=== PATIENT | male | born 1960 | race African-American/Black ===

== ENCOUNTER 2016-07-24 16:36 | Inpatient (IN) | payer OTHER ==
[2016-07-24 16:48] VITALS: BMI 25.1
--- NOTE | 2016-07-24 16:59 | HP ---
CIWA Score - CIWA Score Nausea/Vomitin-No Nausea/No Vomiting Muscle Tremors: 4-Moderate,w/Arms Extend Anxiety: 4-Mod. Anxious/Guarded Agitation: 4-Moderately Restless Paroxysmal Sweats: 1-Minimal Palms Moist Orientation: 3-Disoriented Date>2 days Tacttile Disturbances: 0-None Auditory Disturbances: 0-None Visual Disturbances: 0-None Headache: 0-None Present CIWA-Ar Total Score: 16 Admission ROS S - HPI Chief Complaint: WITHDRAWAL SX Allergies/Adverse Reactions: Allergies Allergy/AdvReac Type Severity Reaction Status Date / Time No Known Allergies Allergy Verified 06/24/11 15:36 History of Present Illness: 55 YEARS OLD MALE WITH LONG HISTORY OF ALCOHOL COCAINE NICOTINE DEPENDENCE, POSITIVE PPD WAS TREATED, DEPRESSION, LONGEST SOBRIETY ONE YEAR, SUPPORTIVE SISTER IN [place], IS ADMITTED TO DETOX Exam Limitations: No Limitations - Ebola screening Have you traveled outside of the country in the last 21 days: No Have you had contact with anyone from an Ebola affected area: No Have you been sick,other than usual withdrawal symptoms: No Do you have a fever: No - Review of Systems Constitutional: Chills, Changes in sleep, Weight Stable EENT: reports: Other (EYE GLASSES) Respiratory: reports: No Symptoms reported Cardiac: reports: No Symptoms Reported GI: reports: Poor Appetite, Poor Fluid Intake, Abdominal cramping : reports: No Symptoms Reported Musculoskeletal: reports: No Symptoms Reported Integumentary: reports: No Symptoms Reported Neuro: reports: Tremors Endocrine: reports: No Symptoms Reported Hematology: reports: No Symptoms Reported Psychiatric: reports: Judgement Intact, Depressed Other Systems: Reviewed and Negative Patient History - Patient Medical History Hx Anemia: No Hx Asthma: No Hx Chronic Obstructive Pulmonary Disease (COPD): No Hx Cancer: No Hx Cardiac Disorders: No Hx Congestive Heart Failure: No Hx Hypertension: No Hx Hypercholesterolemia: No Hx Pacemaker: No HX Cerebrovascular Accident: No Hx Seizures: No Hx Dementia: No Hx Diabetes: No Hx Gastrointestinal Disorders: No Hx Liver Disease: No Hx Genitourinary Disorders: No Hx Sexually Transmitted Disorders: No Hx Renal Disease (ESRD): No Hx Thyroid Disease: No Hx Human Immunodeficiency Virus (HIV): No (04/24/11-hiv testing -negative) Hx Hepatitis C: Yes (SCHEDULED TO TREAT) Hx Depression: Yes Hx Suicide Attempt: No Hx Bipolar Disorder: No Hx Schizophrenia: No - Patient Surgical History Past Surgical History: No Hx Neurologic Surgery: No Hx Cataract Extraction: No Hx Cardiac Surgery: No Hx Lung Surgery: No Hx Breast Surgery: No Hx Breast Biopsy: No Hx Abdominal Surgery: No Hx Appendectomy: No Hx Cholecystectomy: No Hx Genitourinary Surgery: No Hx Orthopedic Surgery: No - PPD History Previous Implant?: Yes Documented Results: Positive w/o proof Implanted On Prior [facility] Admission?: No PPD to be Administered?: No - Smoking Cessation Smoking history: Current every day smoker Have you smoked in the past 12 months: Yes Aproximately how many cigarettes per day: 10 Cigars Per Day: 0 Hx Chewing Tobacco Use: No Initiated information on smoking cessation: Yes 'Breaking Loose' booklet given: 07/24/16 - Substance & Tx. History Hx Alcohol Use: Yes Hx Substance Use: Yes Substance Use Type: Alcohol, Cocaine Hx Substance Use Treatment: Yes - Substances Abused Alcohol Route: Oral Frequency: Daily Amount used: 16OZ X 6 PACK BEER Age of first use: 13 Date of Last Use: 07/24/16 Family Disease History - Family Disease History Family Disease History: Diabetes: Sister, Heart Disease: Mother (), Other: Father () Admission Physical Exam BHS - Vital Signs Vital Signs: Vital Signs - 24 hr 07/24/16 16:47 Temperature 97.0 F L Pulse Rate 87 Respiratory 20 Rate Blood Pressure 106/68 - Physical General Appearance: Yes: Appropriately Dressed, Alcohol on Breath, Thin, Tremorous, Irritable, Sweating, Anxious HEENTM: Yes: Hearing grossly Normal, Normal ENT Inspection, Normocephalic, Normal Voice Respiratory: Yes: Chest Non-Tender, Lungs Clear, Normal Breath Sounds, No Respiratory Distress, No Accessory Muscle Use Neck: Yes: Supple, Trachea in good position Breast: Yes: Breasts Symetrical Cardiology: Yes: Regular Rhythm, Regular Rate, S1, S2 Abdominal: Yes: Non Tender, Soft, Decreased BS Genitourinary: Yes: Within Normal Limits Back: Yes: Normal Inspection Musculoskeletal: Yes: Gait Steady Extremities: Yes: Normal Inspection, Normal Range of Motion, Non-Tender, Tremors Neurological: Yes: Alert, Motor Strength 5/5, Normal Response, Depressed Affect Integumentary: Yes: Warm, Moist Lymphatic: Yes: Within Normal Limits - Diagnostic (1) Alcohol dependence with uncomplicated withdrawal Current Visit: Yes Status: Acute (2) Cocaine dependence, uncomplicated Current Visit: Yes Status: Chronic (3) Nicotine dependence Current Visit: Yes Status: Acute Qualifiers: Nicotine product type: cigarettes Substance use status: in withdrawal Qualified Code(s): F17.213 - Nicotine dependence, cigarettes, with withdrawal (4) Hepatitis C antibody test positive Current Visit: Yes Status: Chronic Comment: SCHEDULED TO TREAT Cleared for Admission [facility] - Detox or Rehab [facility] Level of Care: Medically Managed Detox Regimen/Protocol: Librium S Breath Alcohol Content Breath Alcohol Content: 0.079 Vital Signs - Vital Signs Vital Signs Refused: No Temperature: 97 F Temperature Source: Oral Pulse Rate: 87 Respiratory Rate: 20 Blood Pressure: 106/68 BP Location: Left Arm Blood Pressure Position: Sitting - Height Height: 6 ft 2 in - Weight Weight: 196 lb Weight Measurement Method: Standing Scale Body Mass Index (BMI): 25.1 - Bowel Function Bowel Movement: Yes Urine Drug Screen - Control Is Test Valid: Yes - Results Drug Screen Negative: No Urine Drug Screen Results: GENE-Cocaine
[2016-07-24] MEDS ORDERED: MAGNESIUM CITRATE 300 ML BOTTLE PO PRN (17:11)
[2016-07-24] MEDS ORDERED: LOPERAMIDE HCL 2 MG CAPSULE PO PRN (17:11)
[2016-07-24] MEDS ORDERED: diphenhydrAMINE HCL 50 MG CAPSULE PO PRN (17:11)
[2016-07-24] MEDS ORDERED: NICOTINE POLACRILEX 2 MG GUM BC PRN (17:11)
[2016-07-24] MEDS ORDERED: hydrOXYzine PAMOATE 50 MG CAPSULE (FP) PO PRN (17:11)
[2016-07-24] MEDS ORDERED: ACETAMINOPHEN 325 MG TABLET (FP) PO PRN (17:11)
[2016-07-24] MEDS ORDERED: MAG HYDROX/AL HYDROX/SIMETH 30 ML UNIT-DOSE CUP PO PRN (17:11)
[2016-07-24] MEDS ORDERED: guaiFENesin/D-METHORPHAN HB 10 ML UNIT-DOSE CUPS PO PRN (17:11)
[2016-07-24] MEDS ORDERED: P-EPHED 60MG/TRIPROLIDI 2.5MG TABLET PO PRN (17:11)
[2016-07-24] MEDS ORDERED: chlordiazePOXIDE HCL 25 MG CAPSULE PO PRN (17:11)
[2016-07-24] MEDS ORDERED: MENTHOL/PHENOL 1 EACH UD MM PRN (17:11)
[2016-07-24] MEDS ORDERED: MAGNESIUM HYDROX 2400MG/30ML ORAL SUSPENSION 30 ML CUP PO PRN (17:11)
[2016-07-24] MEDS ORDERED: chlordiazePOXIDE HCL 25 MG CAPSULE PO ONE (18:15)
[2016-07-24] MEDS: chlordiazePOXIDE HCL 25 MG CAPSULE PO SCH (22:12)
[2016-07-24] MEDS: THIAMINE HCL 100 MG TABLET (FP) PO SCH (22:12)
[2016-07-24 23:29] LABS: URINE APPEARANCE CLEAR; URINE BILIRUBIN NEGATIVE (NEGATIVE); URINE BLOOD NEGATIVE (NEGATIVE); URINE COLOR LTYELLOW; URINE GLUCOSE (UA) NEGATIVE (NEGATIVE); URINE KETONE NEGATIVE (NEGATIVE); URINE LEUK ESTERASE NEGATIVE (NEGATIVE); URINE NITRITE NEGATIVE (NEGATIVE); URINE PROTEIN NEGATIVE (NEGATIVE); URINE UROBILINOGEN 2.0 E.U/dl E.U./dl (0.2-1.0)
[2016-07-25] MEDS: chlordiazePOXIDE HCL 25 MG CAPSULE PO SCH ×4 (06:13→22:29)
[2016-07-25] MEDS: IBUPROFEN 400 MG TABLET (FP) PO PRN ×2 (06:15→22:30)
[2016-07-25 10:06] LABS: MCH 31.2 pg (25.7-33.7); MCHC 33.9 g/dl (32.0-35.9); MEAN CELL VOLUME 92.2 fl (80-96); MEAN PLT VOLUME 8.3 fl (7.5-11.1); PLATELET COUNT 309 K/MM3 (134-434); RDW 14.7 % (11.9-15.9); WHITE BLOOD COUNT 5.7 K/mm3 (4.0-10.0)
[2016-07-25 10:32] LABS: ALK PHOS 84 U/L (45-117); ANION GAP 6 (8-16); BILIRUBIN,TOTAL 0.3 mg/dL (0.2-1.0); CALCIUM 8.4 mg/dL (8.5-10.1); CO2 28 mmol/L (21-32); GLUCOSE,RANDOM 105 mg/dL (74-106); SGOT/AST 22 U/L (15-37); SGPT/ALT 30 U/L (12-78); TOT PROT 6.3 g/dl (6.4-8.2)
--- NOTE | 2016-07-25 10:38 | PN ---
S CIWA - CIWA Score Nausea/Vomitin-No Nausea/No Vomiting Muscle Tremors: 4-Moderate,w/Arms Extend Anxiety: 3 Agitation: 4-Moderately Restless Paroxysmal Sweats: 3 Orientation: 0-Oriented Tacttile Disturbances: 0-None Auditory Disturbances: 0-None Visual Disturbances: 0-None Headache: 1-Very Mild CIWA-Ar Total Score: 15 BHS Progress Note (SOAP) Subjective: agitation sweats shakes interrupted sleep headache Objective: 07/25/16 10:36 Vital Signs Temperature 97.3 F L 07/25/16 10:12 Pulse Rate 86 07/25/16 10:12 Respiratory Rate 16 07/25/16 10:12 Blood Pressure 115/59 07/25/16 10:12 O2 Sat by Pulse Oximetry (%) Laboratory Tests 07/24/16 07/25/16 23:25 07:30 WBC 5.7 RBC 4.21 Hgb 13.1 Hct 38.8 MCV 92.2 MCHC 33.9 RDW 14.7 Plt Count 309 MPV 8.3 Urine Color Ltyellow Urine Appearance Clear Urine pH 7.0 Ur Specific [place] 1.005 Urine Protein Negative Urine Glucose (UA) Negative Urine Ketones Negative Urine Blood Negative Urine Nitrite Negative Urine Bilirubin Negative Urine Urobilinogen 2.0 e.u/dl Ur Leukocyte Esterase Negative labs pending awake/alert lying in bed no acute distress Assessment: 07/25/16 10:37 withdrawal sx Plan: continue detox increase fluids labs pending tylenol/motrin prn
[2016-07-25] MEDS: PRENATAL VITAMINS W/ FOLIC ACID TABLET (FP) PO SCH (10:49)
[2016-07-25] MEDS: NICOTINE 14 MG/24 HOURS TOPICAL PATCH TD SCH (10:50)
--- NOTE | 2016-07-25 11:43 | CONSULT ---
[facility] Psychiatric Consult - Data Date of interview: 07/25/16 Admission source: [facility] Identifying data: Readmission to [facility] for this 55 y/o AA male seeking detox treatment on for alcohol and cocaine dependence.Patient is single without children,homeless,unemplolyed and deprived of any means of income. Substance Abuse History: - Smoking Cessation. Smoking history: Current every day smoker. Have you smoked in the past 12 months: Yes. Aproximately how many cigarettes per day: 10. Cigars Per Day: 0. Hx Chewing Tobacco Use: No. Initiated information on smoking cessation: Yes. 'Breaking Loose' booklet given : 07/24/16. - Substance & Tx. History. Hx Alcohol Use: Yes. Hx Substance Use : Yes. Substance Use Type: Alcohol, Cocaine. Hx Substance Use Treatment: Yes. - Substances Abused. Alcohol. Route: Oral. Frequency: Daily. Amount used: 16OZ X 6 PACK BEER. Age of first use: 13. Date of Last Use: 07/24/16. Patient confirms this pattern of substance abuse. Medical History: Hepatitis C. Psychiatric History: Patient denies history of psychiatric treatment. Physical/Sexual Abuse/Trauma History: Patient denies history of sexual abuse.Heavy history of incarceration (sent to custodial at age 18 and released at 41).Currently on parole for life. Additional Comment: Urine Drug Screen Results: GENE-Cocaine.Noted. Mental Status Exam - Mental Status Exam Alert and Oriented to: Time, Place, Person Cognitive Function: Good Patient Appearance: Well Groomed Mood: Nervous, Anxious, Hopeful Affect: Mood Congruent Patient Behavior: Appropriate, Cooperative Speech Pattern: Clear Voice Loudness: Normal Thought Process: Intact, Goal Oriented Thought Disorder: Not Present Hallucinations: Denies Suicidal Ideation: Denies Homicidal Ideation: Denies Insight/Judgement: Fair Sleep: Well Appetite: Good Muscle strength/Tone: Normal Gait/Station: Normal Psychiatric Findings - Problem List ([place] 1, 2,3) (1) Alcohol dependence with uncomplicated withdrawal Current Visit: Yes Status: Acute (2) Nicotine dependence Current Visit: Yes Status: Acute Qualifiers: Nicotine product type: cigarettes Substance use status: in withdrawal Qualified Code(s): F17.213 - Nicotine dependence, cigarettes, with withdrawal (3) Cocaine dependence, uncomplicated Current Visit: Yes Status: Acute (4) Substance induced mood disorder Current Visit: Yes Status: Suspected (5) Hepatitis C antibody test positive Current Visit: Yes Status: Chronic Comment: SCHEDULED TO TREAT - Initial Treatment Plan Initial Treatment Plan: Psychoeducation.Detoxification in progress.Mr Elam indicates his disinterest for psychotropic medications.He prefers the option of " talk therapy." He appears to be receptive to teaching.Observation.
[2016-07-25 15:09] LABS: HIV 1 & 2 AB NEGATIVE; HIV 1 AGp24 NEGATIVE
--- NOTE | 2016-07-25 15:20 | EKG ---
Test Reason : Blood Pressure : / mmHG Vent. Rate : 089 BPM Atrial Rate : 089 BPM P-R Int : 130 ms QRS Dur : 084 ms QT Int : 370 ms P-R-T Axes : 047 -08 047 degrees QTc Int : 450 ms NORMAL SINUS RHYTHM VOLTAGE CRITERIA FOR LEFT VENTRICULAR HYPERTROPHY ABNORMAL ECG NO PREVIOUS ECGS AVAILABLE Confirmed by LEONA TERRY MD ([id number]) on 07/25/2016 3:20:20 PM Referred By: Confirmed By:LEONA TERRY MD
[2016-07-25] MEDS: THIAMINE HCL 100 MG TABLET (FP) PO SCH (22:28)
[2016-07-26] MEDS: chlordiazePOXIDE HCL 25 MG CAPSULE PO SCH ×3 (05:40→17:32)
[2016-07-26] MEDS: NICOTINE 14 MG/24 HOURS TOPICAL PATCH TD SCH (10:16)
[2016-07-26] MEDS: PRENATAL VITAMINS W/ FOLIC ACID TABLET (FP) PO SCH (10:16)
[2016-07-26] MEDS: IBUPROFEN 400 MG TABLET (FP) PO PRN (10:21)
--- NOTE | 2016-07-26 11:58 | PN ---
[facility] CIWA - CIWA Score Nausea/Vomitin Muscle Tremors: 3 Anxiety: 3 Agitation: 2 Paroxysmal Sweats: 1-Minimal Palms Moist Orientation: 0-Oriented Tacttile Disturbances: 1-Very Mild Itch/Numbness Auditory Disturbances: 1-Very Mild Visual Disturbances: 1-Very Mild Sensitivity Headache: 2-Mild CIWA-Ar Total Score: 17 BHS Progress Note (SOAP) Subjective: ALERT,IRRITABLE,ANXIOUS,INTERRUPTED SLEEP,TREMOR Objective: 07/26/16 11:56 Vital Signs Temperature 97.3 F L 07/26/16 10:24 Pulse Rate 84 07/26/16 10:24 Respiratory Rate 18 07/26/16 10:24 Blood Pressure 92/62 07/26/16 10:24 O2 Sat by Pulse Oximetry (%) Laboratory Last Values WBC 5.7 K/mm3 (4.0-10.0) 07/25/16 07:30 RBC 4.21 M/mm3 (4.00-5.60) 07/25/16 07:30 Hgb 13.1 GM/dL (11.7-16.9) 07/25/16 07:30 Hct 38.8 % (35.4-49) 07/25/16 07:30 MCV 92.2 fl (80-96) 07/25/16 07:30 MCHC 33.9 g/dl (32.0-35.9) 07/25/16 07:30 RDW 14.7 % (11.9-15.9) 07/25/16 07:30 Plt Count 309 K/MM3 (134-434) 07/25/16 07:30 MPV 8.3 fl (7.5-11.1) 07/25/16 07:30 Sodium 142 mmol/L (136-145) 07/25/16 07:30 Potassium 4.3 mmol/L (3.5-5.1) 07/25/16 07:30 Chloride 108 mmol/L (98-107) H 07/25/16 07:30 Carbon Dioxide 28 mmol/L (21-32) 07/25/16 07:30 Anion Gap 6 (8-16) L 07/25/16 07:30 BUN 13 mg/dL (7-18) 07/25/16 07:30 Creatinine 1.0 mg/dL (0.7-1.3) 07/25/16 07:30 Creat Clearance w eGFR > 60 (>60) 07/25/16 07:30 Random Glucose 105 mg/dL (74-106) 07/25/16 07:30 Calcium 8.4 mg/dL (8.5-10.1) L 07/25/16 07:30 Total Bilirubin 0.3 mg/dL (0.2-1.0) D 07/25/16 07:30 AST 22 U/L (15-37) D 07/25/16 07:30 ALT 30 U/L (12-78) D 07/25/16 07:30 Alkaline Phosphatase 84 U/L (45-117) D 07/25/16 07:30 Total Protein 6.3 g/dl (6.4-8.2) L 07/25/16 07:30 Albumin 3.0 g/dl (3.4-5.0) L 07/25/16 07:30 Urine Color Ltyellow 07/24/16 23:25 Urine Appearance Clear 07/24/16 23:25 Urine pH 7.0 (5.0-8.0) 07/24/16 23:25 Ur Specific [place] 1.005 (1.001-1.035) 07/24/16 23:25 Urine Protein Negative (NEGATIVE) 07/24/16 23:25 Urine Glucose (UA) Negative (NEGATIVE) 07/24/16 23:25 Urine Ketones Negative (NEGATIVE) 07/24/16 23:25 Urine Blood Negative (NEGATIVE) 07/24/16 23:25 Urine Nitrite Negative (NEGATIVE) 07/24/16 23:25 Urine Bilirubin Negative (NEGATIVE) 07/24/16 23:25 Urine Urobilinogen 2.0 e.u/dl E.U./dl (0.2-1.0) 07/24/16 23:25 Ur Leukocyte Esterase Negative (NEGATIVE) 07/24/16 23:25 RPR Titer Nonreactive (NONREACTIVE) 07/25/16 07:30 HIV 1&2 Antibody Screen Negative 07/25/16 08:00 HIV P24 Antigen Negative 07/25/16 08:00 Assessment: 07/26/16 11:57 WITHDRAWAL SYMPTOM Plan: CONTINUE DETOX
[2016-07-26] MEDS: THIAMINE HCL 100 MG TABLET (FP) PO SCH (22:13)
[2016-07-26] MEDS: chlordiazePOXIDE 5 MG CAPSULE PO SCH (22:14)
[2016-07-27] MEDS: chlordiazePOXIDE 5 MG CAPSULE PO SCH ×3 (05:34→18:06)
[2016-07-27] MEDS: NICOTINE 14 MG/24 HOURS TOPICAL PATCH TD SCH (10:58)
[2016-07-27] MEDS: PRENATAL VITAMINS W/ FOLIC ACID TABLET (FP) PO SCH (10:58)
--- NOTE | 2016-07-27 12:23 | PN ---
S Progress Note (SOAP) Subjective: ALERT,IRRITABLE,ANXIOUS,INTERRUPTED SLEEP, Objective: 07/27/16 12:23 Vital Signs Temperature 98.1 F 07/27/16 09:53 Pulse Rate 89 07/27/16 09:53 Respiratory Rate 16 07/27/16 09:53 Blood Pressure 92/61 07/27/16 09:53 O2 Sat by Pulse Oximetry (%) Assessment: 07/27/16 12:23 WITHDRAWAL SYMPTOM Plan: CONTINUE DETOX,DISCHARGE IN AM
[2016-07-27] MEDS: THIAMINE HCL 100 MG TABLET (FP) PO SCH (22:43)
[2016-07-27] MEDS: chlordiazePOXIDE HCL 10 MG CAPSULE PO SCH (22:43)
[2016-07-28] MEDS: chlordiazePOXIDE HCL 10 MG CAPSULE PO SCH ×2 (06:39→10:17)
--- NOTE | 2016-07-28 08:47 | DS ---
[facility] Detox Discharge Summary Admission Date: 07/24/16 Discharge Date: 07/28/16 - History Present History: Alcohol Dependence, Cocaine Dependence - Physical Exam Results Vital Signs: Vital Signs Temperature 98.1 F 07/28/16 06:00 Pulse Rate 70 07/28/16 06:00 Respiratory Rate 18 07/28/16 06:00 Blood Pressure 93/58 07/28/16 06:00 O2 Sat by Pulse Oximetry (%) - Treatment Hospital Course: Detox Protocol Followed, Detoxed Safely, Responded well, Discharged Condition Good, Rehab Referral Accepted - Medication Discharge Medications: Ambulatory Orders Sertraline HCl [Zoloft] 50 mg PO DAILY #0 tablet 07/07/11 - Diagnosis (1) Alcohol dependence with uncomplicated withdrawal Current Visit: Yes Status: Chronic (2) Cocaine dependence, uncomplicated Current Visit: Yes Status: Chronic (3) Nicotine dependence Current Visit: Yes Status: Chronic Qualifiers: Nicotine product type: cigarettes Substance use status: in withdrawal Qualified Code(s): F17.213 - Nicotine dependence, cigarettes, with withdrawal (4) Hepatitis C antibody test positive Current Visit: Yes Status: Chronic (5) Substance induced mood disorder Current Visit: Yes Status: Suspected - AMA Did Patient Leave Against Medical Advice: No
[2016-07-28 10:15] VITALS: BP 108/59; PULSE 87; TEMP 99
[2016-07-28] MEDS: PRENATAL VITAMINS W/ FOLIC ACID TABLET (FP) PO SCH (10:17)
[2016-07-28] MEDS: NICOTINE 14 MG/24 HOURS TOPICAL PATCH TD SCH (10:17)
== END 2016-07-28 12:10 | disposition home or self-care (01) | DRG 774 ==
LOC: YASAS 16:36 → Y6N 18:02
PROVIDERS: ADMIT Internal Medicine Addiction Medicine; ATTEND Internal Medicine Addiction Medicine
PROC: HZ2ZZZZ Detoxification Services for Substance Abuse Treatment (ICD-10-PCS; principal; 2016-07-24)
DX: F10.230 Alcohol dependence with withdrawal, uncomplicated (principal); F14.20 Cocaine dependence, uncomplicated; F17.210 Nicotine dependence, cigarettes, uncomplicated; F19.24 Other psychoactive substance dependence with psychoactive substance-induced mood disorder; B18.2 Chronic viral hepatitis C
CPT/HCPCS: 36415; 71020-TC; 80053; 81003; 85027; 86593; 87389; 93005; 93010

== ENCOUNTER 2016-07-31 10:47 | Inpatient (IN) | payer OTHER ==
[2016-07-31 11:34] VITALS: BMI 25.0
[2016-07-31] MEDS ORDERED: MAGNESIUM CITRATE 300 ML BOTTLE PO PRN (12:40)
[2016-07-31] MEDS ORDERED: LOPERAMIDE HCL 2 MG CAPSULE PO PRN (12:40)
[2016-07-31] MEDS ORDERED: MENTHOL/PHENOL 1 EACH UD MM PRN (12:40)
[2016-07-31] MEDS ORDERED: P-EPHED 60MG/TRIPROLIDI 2.5MG TABLET PO PRN (12:40)
[2016-07-31] MEDS ORDERED: MAGNESIUM HYDROX 2400MG/30ML ORAL SUSPENSION 30 ML CUP PO PRN (12:40)
[2016-07-31] MEDS ORDERED: NICOTINE POLACRILEX 2 MG GUM BUC PRN (12:40)
[2016-07-31] MEDS ORDERED: MAG HYDROX/AL HYDROX/SIMETH 30 ML UNIT-DOSE CUP PO PRN (12:40)
[2016-07-31] MEDS ORDERED: hydrOXYzine PAMOATE 25 MG CAPSULE (FP) PO PRN (12:40)
[2016-07-31] MEDS ORDERED: guaiFENesin/D-METHORPHAN HB 10 ML UNIT-DOSE CUPS PO PRN (12:40)
--- NOTE | 2016-07-31 12:40 | HP ---
[facility] Re[facility] Assess/Revision - Admission History Admitted to Rehab from: [facility] (DETOX COMPLETED ON [facility] 07/24/16 TO 07/28/16) Date of Admission to Rehab: 07/31/16 - Vital signs Vital Signs: Vital Signs Period Temp Pulse Resp BP Sys/Leal Pulse Ox Last 24 Hr 97.5 F 95 18 99/62 - Findings Detox History & Physical reviewed: Yes Concur with findings: Yes Comments/Additional Findings: PT RETURNED TO [facility] FOR A FOLLOW UP TO REHAB. ALERT O X 3. NAD. VSS. PLAN:ADMIT TO REHAB
[2016-07-31] MEDS: NICOTINE 14 MG/24 HOURS TOPICAL PATCH TD SCH (15:48)
[2016-07-31 16:19] LABS: URINE APPEARANCE CLEAR; URINE BILIRUBIN NEGATIVE (NEGATIVE); URINE BLOOD NEGATIVE (NEGATIVE); URINE COLOR LTYELLOW; URINE GLUCOSE (UA) NEGATIVE (NEGATIVE); URINE KETONE TRACE (NEGATIVE); URINE LEUK ESTERASE NEGATIVE (NEGATIVE); URINE NITRITE NEGATIVE (NEGATIVE); URINE PROTEIN NEGATIVE (NEGATIVE); URINE UROBILINOGEN NEGATIVE E.U./dl (0.2-1.0)
[2016-07-31] MEDS: THIAMINE HCL 100 MG TABLET (FP) PO SCH (22:12)
[2016-08-01] MEDS: PRENATAL VITAMINS W/ FOLIC ACID TABLET (FP) PO SCH (10:19)
[2016-08-01] MEDS: ACETAMINOPHEN 325 MG TABLET (FP) PO PRN ×2 (10:20→21:43)
[2016-08-01] MEDS: NICOTINE 14 MG/24 HOURS TOPICAL PATCH TD SCH (10:21)
--- NOTE | 2016-08-01 12:04 | HP ---
Psychiatrist Admission - Data Date of interview: 08/01/16 Admission source: [facility] Identifying data: This is the second 5N inpatient rehabilitation admission for this 55 year old single male with no children, who is currently homeless. Medical History: Arthritis, Hepatitis C, smokes cigarettes 10 a day. Psychiatric History: Patient repots a short treatment for anxiety and deeepression while in the treatment at [facility] in 2011 or 2012, states was started Zoloft , took only 2 weeeks then stopped "it did not work", no history of psychric hospitalizations, he reports he feels sad due to his current life situations, being unemployed and homeless. Physical/Sexual Abuse/Trauma History: He denies history of sexual, physical and verbla abuse, states was incarcarated for 24 years and on parole for life.. Vital Signs: Vital Signs - 24 hr 07/31/16 08/01/16 08/01/16 15:35 00:39 03:30 Temperature 98 F Pulse Rate 85 Respiratory 18 18 18 Rate Blood Pressure 109/60 08/01/16 06:53 Temperature 97.6 F Pulse Rate 78 Respiratory 18 Rate Blood Pressure 98/60 Allergies/Adverse Reactions: Allergies Allergy/AdvReac Type Severity Reaction Status Date / Time No Known Allergies Allergy Verified 07/31/16 15:14 Date of last physical exam: 07/31/16 Concur with the findings of this exam: Yes - Substance Abuse/Tx History Hx Alcohol Use: Yes (16 oz 6 pks) Hx Substance Use: Yes Substance Use Type: Cocaine ($20-30-40 ) Hx Substance Use Treatment: Yes ([facility], [facility]) - Admission Criteria Previous failed treatment: Yes Poor recovery environment: Yes Comorbidities: Yes Lacks judgement: Yes Mental Status Exam - Mental Status Exam Alert and Oriented to: Time, Place, Person Cognitive Function: Good Patient Appearance: Well Groomed Mood: Depressed, Sad Affect: Appropriate, Mood Congruent Patient Behavior: Appropriate, Cooperative Speech Pattern: Clear, Appropriate Voice Loudness: Normal Thought Process: Intact Thought Disorder: Not Present Hallucinations: None Suicidal Ideation: None Homicidal Ideation: None Insight/Judgement: Good Sleep: Well Appetite: Good Muscle strength/Tone: Normal Gait/Station: Normal Psychiatric Findings - Problem List ([place] 1, 2,3) (1) Cocaine dependence, uncomplicated Current Visit: No Status: Chronic (2) Nicotine dependence Current Visit: No Status: Chronic Qualifiers: Nicotine product type: cigarettes Substance use status: in withdrawal Qualified Code(s): F17.213 - Nicotine dependence, cigarettes, with withdrawal (3) Substance induced mood disorder Current Visit: No Status: Suspected (4) Alcohol dependence Current Visit: Yes Status: Acute - Initial Treatment Plan Initial Treatment Plan: psychoeducation and psycotherapy, continue to monitor rpogress.
--- NOTE | 2016-08-01 12:51 | EKG ---
Test Reason : Blood Pressure : / mmHG Vent. Rate : 073 BPM Atrial Rate : 073 BPM P-R Int : 140 ms QRS Dur : 094 ms QT Int : 418 ms P-R-T Axes : 031 001 030 degrees QTc Int : 460 ms NORMAL SINUS RHYTHM MODERATE VOLTAGE CRITERIA FOR LVH, MAY BE NORMAL VARIANT WHEN COMPARED WITH ECG OF 24-JUL-2016 18:46, NO SIGNIFICANT CHANGE WAS FOUND Confirmed by LEONA TERRY MD ([id number]) on 08/01/2016 12:50:44 PM Referred By: Confirmed By:LEONA TERRY MD
[2016-08-01] MEDS: THIAMINE HCL 100 MG TABLET (FP) PO SCH (21:43)
[2016-08-01] MEDS: diphenhydrAMINE HCL 50 MG CAPSULE PO PRN (21:44)
[2016-08-02] MEDS: PRENATAL VITAMINS W/ FOLIC ACID TABLET (FP) PO SCH (09:55)
[2016-08-02] MEDS: NICOTINE 14 MG/24 HOURS TOPICAL PATCH TD SCH (09:55)
[2016-08-02 10:22] LABS: URINE APPEARANCE CLEAR; URINE BILIRUBIN NEGATIVE (NEGATIVE); URINE BLOOD NEGATIVE (NEGATIVE); URINE COLOR LTYELLOW; URINE GLUCOSE (UA) NEGATIVE (NEGATIVE); URINE KETONE NEGATIVE (NEGATIVE); URINE LEUK ESTERASE NEGATIVE (NEGATIVE); URINE NITRITE NEGATIVE (NEGATIVE); URINE PROTEIN NEGATIVE (NEGATIVE); URINE UROBILINOGEN NEGATIVE E.U./dl (0.2-1.0)
[2016-08-02] MEDS: THIAMINE HCL 100 MG TABLET (FP) PO SCH (21:40)
[2016-08-02] MEDS: diphenhydrAMINE HCL 50 MG CAPSULE PO PRN (21:41)
[2016-08-02] MEDS: ACETAMINOPHEN 325 MG TABLET (FP) PO PRN (21:42)
[2016-08-03] MEDS: PRENATAL VITAMINS W/ FOLIC ACID TABLET (FP) PO SCH (09:57)
[2016-08-03] MEDS: ACETAMINOPHEN 325 MG TABLET (FP) PO PRN (09:57)
[2016-08-03] MEDS: NICOTINE 14 MG/24 HOURS TOPICAL PATCH TD SCH (10:11)
[2016-08-03] MEDS: THIAMINE HCL 100 MG TABLET (FP) PO SCH (21:41)
[2016-08-03] MEDS: diphenhydrAMINE HCL 50 MG CAPSULE PO PRN (21:41)
[2016-08-04] MEDS: NICOTINE 14 MG/24 HOURS TOPICAL PATCH TD SCH (09:44)
[2016-08-04] MEDS: PRENATAL VITAMINS W/ FOLIC ACID TABLET (FP) PO SCH (09:44)
[2016-08-04] MEDS: diphenhydrAMINE HCL 50 MG CAPSULE PO PRN (21:54)
[2016-08-04] MEDS: THIAMINE HCL 100 MG TABLET (FP) PO SCH (21:54)
[2016-08-04] MEDS: ACETAMINOPHEN 325 MG TABLET (FP) PO PRN (21:55)
[2016-08-05] MEDS: PRENATAL VITAMINS W/ FOLIC ACID TABLET (FP) PO SCH (09:37)
[2016-08-05] MEDS: ACETAMINOPHEN 325 MG TABLET (FP) PO PRN (09:37)
[2016-08-05] MEDS: NICOTINE 14 MG/24 HOURS TOPICAL PATCH TD SCH (09:38)
[2016-08-05] MEDS: IBUPROFEN 400 MG TABLET (FP) PO PRN (19:50)
[2016-08-05] MEDS: METHYL SALICYLATE/MENTHOL OINT 30 GM TUBE TP SCH (20:10)
[2016-08-05] MEDS: THIAMINE HCL 100 MG TABLET (FP) PO SCH (21:23)
[2016-08-05] MEDS: diphenhydrAMINE HCL 50 MG CAPSULE PO PRN (21:23)
[2016-08-06] MEDS: METHYL SALICYLATE/MENTHOL OINT 30 GM TUBE TP SCH (09:42)
[2016-08-06] MEDS: NICOTINE 14 MG/24 HOURS TOPICAL PATCH TD SCH (09:42)
[2016-08-06] MEDS: PRENATAL VITAMINS W/ FOLIC ACID TABLET (FP) PO SCH (09:42)
[2016-08-06] MEDS: IBUPROFEN 400 MG TABLET (FP) PO PRN ×2 (09:44→21:58)
[2016-08-06] MEDS: THIAMINE HCL 100 MG TABLET (FP) PO SCH (21:57)
[2016-08-06] MEDS: diphenhydrAMINE HCL 50 MG CAPSULE PO PRN (21:59)
[2016-08-07] MEDS: NICOTINE 14 MG/24 HOURS TOPICAL PATCH TD SCH (10:10)
[2016-08-07] MEDS: PRENATAL VITAMINS W/ FOLIC ACID TABLET (FP) PO SCH (10:10)
[2016-08-07] MEDS: METHYL SALICYLATE/MENTHOL OINT 30 GM TUBE TP SCH (10:10)
[2016-08-07] MEDS: IBUPROFEN 400 MG TABLET (FP) PO PRN ×2 (10:11→22:07)
[2016-08-07] MEDS: THIAMINE HCL 100 MG TABLET (FP) PO SCH (22:05)
[2016-08-07] MEDS: diphenhydrAMINE HCL 50 MG CAPSULE PO PRN (22:05)
[2016-08-08] MEDS: PRENATAL VITAMINS W/ FOLIC ACID TABLET (FP) PO SCH (09:38)
[2016-08-08] MEDS: METHYL SALICYLATE/MENTHOL OINT 30 GM TUBE TP SCH (09:38)
[2016-08-08] MEDS: NICOTINE 14 MG/24 HOURS TOPICAL PATCH TD SCH (09:38)
[2016-08-08] MEDS: IBUPROFEN 400 MG TABLET (FP) PO PRN ×2 (09:39→20:45)
[2016-08-08] MEDS: diphenhydrAMINE HCL 50 MG CAPSULE PO PRN (21:36)
[2016-08-08] MEDS: THIAMINE HCL 100 MG TABLET (FP) PO SCH (21:36)
[2016-08-09] MEDS: METHYL SALICYLATE/MENTHOL OINT 30 GM TUBE TP SCH (09:55)
[2016-08-09] MEDS: IBUPROFEN 400 MG TABLET (FP) PO PRN ×2 (09:56→21:25)
[2016-08-09] MEDS: NICOTINE 14 MG/24 HOURS TOPICAL PATCH TD SCH (09:57)
[2016-08-09] MEDS: PRENATAL VITAMINS W/ FOLIC ACID TABLET (FP) PO SCH (09:57)
[2016-08-09] MEDS: THIAMINE HCL 100 MG TABLET (FP) PO SCH (21:24)
[2016-08-10] MEDS: IBUPROFEN 400 MG TABLET (FP) PO PRN ×2 (09:51→21:33)
[2016-08-10] MEDS: PRENATAL VITAMINS W/ FOLIC ACID TABLET (FP) PO SCH (09:51)
[2016-08-10] MEDS: NICOTINE 14 MG/24 HOURS TOPICAL PATCH TD SCH (09:52)
[2016-08-10] MEDS: METHYL SALICYLATE/MENTHOL OINT 30 GM TUBE TP SCH (09:55)
[2016-08-10] MEDS: THIAMINE HCL 100 MG TABLET (FP) PO SCH (21:32)
[2016-08-10] MEDS: diphenhydrAMINE HCL 50 MG CAPSULE PO PRN (21:33)
[2016-08-11] MEDS: NICOTINE 14 MG/24 HOURS TOPICAL PATCH TD SCH (09:58)
[2016-08-11] MEDS: METHYL SALICYLATE/MENTHOL OINT 30 GM TUBE TP SCH (09:58)
[2016-08-11] MEDS: PRENATAL VITAMINS W/ FOLIC ACID TABLET (FP) PO SCH (09:59)
[2016-08-11] MEDS: IBUPROFEN 400 MG TABLET (FP) PO PRN (09:59)
[2016-08-11] MEDS ORDERED: LIDOCAINE 5% TOPICAL PATCH TP ONE (13:54)
[2016-08-11] MEDS: CYCLOBENZAPRINE HCL 10 MG TABLET (FP) PO PRN ×2 (14:23→21:47)
[2016-08-11] MEDS: THIAMINE HCL 100 MG TABLET (FP) PO SCH (21:46)
[2016-08-11] MEDS: diphenhydrAMINE HCL 50 MG CAPSULE PO PRN (21:47)
[2016-08-12] MEDS: PRENATAL VITAMINS W/ FOLIC ACID TABLET (FP) PO SCH (10:02)
[2016-08-12] MEDS: NICOTINE 14 MG/24 HOURS TOPICAL PATCH TD SCH (10:02)
[2016-08-12] MEDS: METHYL SALICYLATE/MENTHOL OINT 30 GM TUBE TP SCH (10:03)
[2016-08-12] MEDS: LIDOCAINE 5% TOPICAL PATCH TP SCH (10:03)
[2016-08-12] MEDS: IBUPROFEN 400 MG TABLET (FP) PO PRN ×2 (10:04→21:42)
[2016-08-12] MEDS: CYCLOBENZAPRINE HCL 10 MG TABLET (FP) PO PRN ×2 (10:06→21:43)
[2016-08-12] MEDS: THIAMINE HCL 100 MG TABLET (FP) PO SCH (21:42)
[2016-08-12] MEDS: diphenhydrAMINE HCL 50 MG CAPSULE PO PRN (21:43)
[2016-08-13] MEDS: IBUPROFEN 400 MG TABLET (FP) PO PRN ×2 (09:56→21:35)
[2016-08-13] MEDS: CYCLOBENZAPRINE HCL 10 MG TABLET (FP) PO PRN ×2 (09:56→21:35)
[2016-08-13] MEDS: PRENATAL VITAMINS W/ FOLIC ACID TABLET (FP) PO SCH (09:56)
[2016-08-13] MEDS: METHYL SALICYLATE/MENTHOL OINT 30 GM TUBE TP SCH (09:57)
[2016-08-13] MEDS: LIDOCAINE 5% TOPICAL PATCH TP SCH (09:57)
[2016-08-13] MEDS: NICOTINE 14 MG/24 HOURS TOPICAL PATCH TD SCH (09:57)
[2016-08-13] MEDS: THIAMINE HCL 100 MG TABLET (FP) PO SCH (21:34)
[2016-08-13] MEDS: diphenhydrAMINE HCL 50 MG CAPSULE PO PRN (21:35)
[2016-08-14] MEDS: IBUPROFEN 400 MG TABLET (FP) PO PRN ×2 (10:09→21:14)
[2016-08-14] MEDS: PRENATAL VITAMINS W/ FOLIC ACID TABLET (FP) PO SCH (10:09)
[2016-08-14] MEDS: LIDOCAINE 5% TOPICAL PATCH TP SCH (10:10)
[2016-08-14] MEDS: NICOTINE 14 MG/24 HOURS TOPICAL PATCH TD SCH (10:10)
[2016-08-14] MEDS: METHYL SALICYLATE/MENTHOL OINT 30 GM TUBE TP SCH (10:10)
[2016-08-14] MEDS: THIAMINE HCL 100 MG TABLET (FP) PO SCH (21:14)
[2016-08-14] MEDS: diphenhydrAMINE HCL 50 MG CAPSULE PO PRN (21:14)
[2016-08-15] MEDS: NICOTINE 14 MG/24 HOURS TOPICAL PATCH TD SCH (09:45)
[2016-08-15] MEDS: LIDOCAINE 5% TOPICAL PATCH TP SCH (09:45)
[2016-08-15] MEDS: METHYL SALICYLATE/MENTHOL OINT 30 GM TUBE TP SCH (09:45)
[2016-08-15] MEDS: IBUPROFEN 400 MG TABLET (FP) PO PRN ×2 (09:47→21:20)
[2016-08-15] MEDS: PRENATAL VITAMINS W/ FOLIC ACID TABLET (FP) PO SCH (09:47)
[2016-08-15] MEDS: THIAMINE HCL 100 MG TABLET (FP) PO SCH (21:20)
[2016-08-15] MEDS: diphenhydrAMINE HCL 50 MG CAPSULE PO PRN (21:20)
[2016-08-16] MEDS: METHYL SALICYLATE/MENTHOL OINT 30 GM TUBE TP SCH (09:54)
[2016-08-16] MEDS: PRENATAL VITAMINS W/ FOLIC ACID TABLET (FP) PO SCH (09:54)
[2016-08-16] MEDS: LIDOCAINE 5% TOPICAL PATCH TP SCH (09:54)
[2016-08-16] MEDS: NICOTINE 14 MG/24 HOURS TOPICAL PATCH TD SCH (09:54)
[2016-08-16] MEDS: IBUPROFEN 400 MG TABLET (FP) PO PRN ×2 (09:55→21:42)
[2016-08-16] MEDS: THIAMINE HCL 100 MG TABLET (FP) PO SCH (21:41)
[2016-08-17] MEDS: PRENATAL VITAMINS W/ FOLIC ACID TABLET (FP) PO SCH (09:55)
[2016-08-17] MEDS: LIDOCAINE 5% TOPICAL PATCH TP SCH (09:55)
[2016-08-17] MEDS: METHYL SALICYLATE/MENTHOL OINT 30 GM TUBE TP SCH (09:56)
[2016-08-17] MEDS: NICOTINE 14 MG/24 HOURS TOPICAL PATCH TD SCH (09:56)
[2016-08-17] MEDS: IBUPROFEN 400 MG TABLET (FP) PO PRN ×2 (09:57→21:34)
[2016-08-17] MEDS: THIAMINE HCL 100 MG TABLET (FP) PO SCH (21:33)
[2016-08-18 07:11] VITALS: BP 103/61; PULSE 71; TEMP 98
--- NOTE | 2016-08-18 09:54 | PN ---
Psychiatric Progress Note Vital Signs: Vital Signs Period Temp Pulse Resp BP Sys/Leal Pulse Ox Last 24 Hr 98.0 F 71 18-18 103/61 Date of Session: 08/18/16 Chief Complaint:: discharge visit HPI: Patient has addressed alcohol, cocaine, nicotine dependence comorbid substance induced mood disorder. ROS: Arthritis has been medically managed. Current Medications: Active Medications Generic Name Dose Route Start Last Admin Trade Name Freq PRN Reason Stop Dose Admin Acetaminophen 650 mg 07/31/16 12:40 08/05/16 09:37 Tylenol - PO 650 mg Q4H PRN Administration PAIN Al Hydroxide/Mg Hydroxide 30 ml 07/31/16 12:40 Mylanta Oral Suspension - PO Q6H PRN DYSPEPSIA Cyclobenzaprine HCl 10 mg 08/11/16 13:23 08/13/16 21:35 Flexeril - PO 10 mg TID PRN Administration MUSCLE SPASMS Diphenhydramine HCl 50 mg 07/31/16 12:40 08/15/16 21:20 Benadryl - PO 50 mg HSMR1 PRN Administration INSOMNIA Eucalyptus/Menthol/Phenol/Sorbitol 1 each 07/31/16 12:40 Cepastat Lozenge - MM Q4H PRN SORE THROAT Guaifenesin 10 ml 07/31/16 12:40 Robitussin Dm - PO Q6H PRN COUGH Hydroxyzine Pamoate 25 mg 07/31/16 12:40 Vistaril - PO Q4H PRN AGITATION Ibuprofen 400 mg 07/31/16 12:40 08/17/16 21:34 Motrin - PO 400 mg Q6H PRN Administration SEVERE PAIN Lidocaine 1 patch 08/12/16 10:00 08/17/16 09:55 Lidoderm Patch - TP Not Given DAILY KAELA Loperamide HCl 4 mg 07/31/16 12:40 Imodium - PO Q6H PRN DIARRHEA Magnesium Citrate 300 ml 07/31/16 12:40 Citroma - PO Q48H PRN CONSTIPATION Magnesium Hydroxide 30 ml 07/31/16 12:40 Milk Of Magnesia - PO DAILY PRN CONSTIPATION Methyl Salicylate 1 applic 08/05/16 20:00 08/17/16 09:56 [place] - TP 1 applic DAILY KAELA Administration Nicotine 14 mg 07/31/16 14:00 08/17/16 09:56 Nicoderm Patch - TD Not Given DAILY KAELA Nicotine Polacrilex 2 mg 07/31/16 12:40 Nicorette Gum - BUC Q2H PRN NICOTINE REPLACEMENT RX Multivit/Folic Acid/Iron 1 tab 08/01/16 10:00 08/17/16 09:55 Vitamins (Sjr) - PO 1 tab DAILY KAELA Administration Pseudoephedrine/Triprolidine 1 combo 07/31/16 12:40 Actifed - PO TID PRN NASAL CONGESTION Thiamine HCl 100 mg 07/31/16 22:00 08/17/16 21:33 Vitamin B1 - PO 100 mg HS KAELA Administration Current Side Effect: No Lab tests ordered: No Lab tests reviewed: Yes Provider note:: Patient has completed this program. He has met his treatment goals and will continue to address his issues in inpatient buttermaker continuous churn treatment at [facility]. He expresses motivation for continuing abstinence. He appears stable for discharge today. Total face to face time:: 20 Mental Status Exam - Mental Status Exam Alert and Oriented to: Time, Place, Person Cognitive Function: Good Patient Appearance: Well Groomed Mood: Hopeful Affect: Appropriate, Mood Congruent Patient Behavior: Appropriate, Cooperative Speech Pattern: Clear, Appropriate Voice Loudness: Normal Thought Process: Intact, Goal Oriented Thought Disorder: Not Present Hallucinations: Denies Suicidal Ideation: Denies Homicidal Ideation: Denies Insight/Judgement: Fair Sleep: Fair Appetite: Fair Muscle strength/Tone: Normal Psychiatric Treatment Plan - Problem List (1) Cocaine dependence, uncomplicated Current Visit: No (2) Nicotine dependence Current Visit: No Qualifiers: Nicotine product type: cigarettes Substance use status: in withdrawal Qualified Code(s): F17.213 - Nicotine dependence, cigarettes, with withdrawal (3) Substance induced mood disorder Current Visit: No (4) Alcohol dependence Current Visit: Yes
[2016-08-18] MEDS: PRENATAL VITAMINS W/ FOLIC ACID TABLET (FP) PO SCH (10:02)
[2016-08-18] MEDS: LIDOCAINE 5% TOPICAL PATCH TP SCH (10:03)
[2016-08-18] MEDS: IBUPROFEN 400 MG TABLET (FP) PO PRN (10:03)
[2016-08-18] MEDS: METHYL SALICYLATE/MENTHOL OINT 30 GM TUBE TP SCH (10:04)
[2016-08-18] MEDS: NICOTINE 14 MG/24 HOURS TOPICAL PATCH TD SCH (10:04)
== END 2016-08-18 11:15 | disposition home or self-care (01) | DRG 772 ==
LOC: YASAS 10:47 → Y5N 13:45
PROVIDERS: ADMIT Psychiatry & Neurology Psychiatry; ATTEND Psychiatry & Neurology Psychiatry
PROC: HZ42ZZZ Group Counseling for Substance Abuse Treatment, Cognitive-Behavioral (ICD-10-PCS; principal; 2016-07-31)
DX: F10.20 Alcohol dependence, uncomplicated (principal); F14.20 Cocaine dependence, uncomplicated; F17.210 Nicotine dependence, cigarettes, uncomplicated; F19.24 Other psychoactive substance dependence with psychoactive substance-induced mood disorder; M19.90 Unspecified osteoarthritis, unspecified site
CPT/HCPCS: 81003; 93005; 93010

== ENCOUNTER 2017-01-16 08:27 | Inpatient (IN) | payer OTHER ==
[2017-01-16 09:04] VITALS: BMI 24.4
--- NOTE | 2017-01-16 11:28 | PN ---
S Progress Note Note: 56 Y/O AA/MALE CAME INTO ADMISSION AREA SEEKING DETOX FROM ALCOHOL BUT ALSO C/ O PAIN AND SWELLING TO RIGHT SIDE OF HEAD/FACE/JAW. PT UNABLE TO REMEMBER WHEN AND HOW IT HAPPENED AND SAYS HE MIGHT HAVE FALLEN ON INTOXICATION. PT REPORTS PRIOR FALL WITH BRUISES TO LEFT KNEE AND A MORE RECENT BRUISE ON LEFT ELBOW. ALERT O X 3. COMMUNICATING APPROPRIATELY BUT APPEARS VERY TIRED. PT DENIES ANY PAST MEDICAL HX. Vital Signs Temperature 97.5 F L 01/16/17 09:00 Pulse Rate 75 01/16/17 09:00 Respiratory Rate 18 01/16/17 09:00 Blood Pressure 122/94 01/16/17 09:00 O2 Sat by Pulse Oximetry (%) ANGELA=0.076 HEAD:RIGHT GNOSTICISM AND HEAD SWELLING,REDNESS AND PAIN. RIGHT JAW SWELLING AND LIMITED ROM WITH PAIN. EXTREMITIES: LEFT ELBOW WITH SMALL BRUISE, NO DRAINAGE. LEFT KNEE WITH OLD PARTIAL HEALING BRUISE. PLAN: TRANSFER PT TO [facility] VIA AMBULANCE FOR EVALUATION AND POSSIBLE TREATMENT. REPORT ON PT GIVEN TO DR SMITH AT THE ER AND WILL BE ACCEPTING PATIENT.
--- NOTE | 2017-01-16 15:12 | HP ---
CIWA Score - CIWA Score Nausea/Vomitin-No Nausea/No Vomiting Muscle Tremors: 4-Moderate,w/Arms Extend Anxiety: 3 Agitation: 4-Moderately Restless Paroxysmal Sweats: 3 Orientation: 0-Oriented Tacttile Disturbances: 0-None Auditory Disturbances: 0-None Visual Disturbances: 0-None Headache: 1-Very Mild CIWA-Ar Total Score: 15 Admission ROS BHS - HPI Chief Complaint: I am here to detox. Allergies/Adverse Reactions: Allergies Allergy/AdvReac Type Severity Reaction Status Date / Time No Known Allergies Allergy Verified 01/16/17 11:52 History of Present Illness: pt is a 56yr old male with a history of alcohol dependence seeking detox for treatment. Pt was seen in [place] ED for evaluation of head trauma pt experienced yesterday. Pt cannot recall how or when he fell. All he can say is that he walked to [facility] detox admission area for detox. ED report states CT negative with some swelling to right side of skull. NO BLEEDING. ED report states a fracture to nasal bone d/t fall same injury. Motrin 600mg ordered prn for pain. Exam Limitations: Other (recent head trauma injury d/t fall resulting in right side swelling of head, no bleeding. fracture of nasal bone also d/t fall.) - Ebola screening Have you traveled outside of the country in the last 21 days: No Have you had contact with anyone from an Ebola affected area: No Have you been sick,other than usual withdrawal symptoms: No Do you have a fever: No - Review of Systems Constitutional: Chills, Diaphoresis, Loss of Appetite, Changes in sleep EENT: reports: No Symptoms Reported Respiratory: reports: No Symptoms reported Cardiac: reports: No Symptoms Reported, Syncope (blackout) GI: reports: Poor Appetite, Poor Fluid Intake : reports: No Symptoms Reported Musculoskeletal: reports: Muscle Pain Integumentary: reports: Flushing, Sweating Neuro: reports: Headache, Tingling, Tremors Endocrine: reports: Excessive Sweating, Flushing, Intolerance to Cold, Intolerance to Heat Hematology: reports: No Symptoms Reported Psychiatric: reports: Judgement Intact, Mood/Affect Appropiate, Orientated x3, Agitated, Anxious Other Systems: Reviewed and Negative Patient History - Patient Medical History Hx Anemia: No Hx Asthma: No Hx Chronic Obstructive Pulmonary Disease (COPD): No Hx Cancer: No Hx Cardiac Disorders: No Hx Congestive Heart Failure: No Hx Hypertension: No Hx Hypercholesterolemia: No Hx Pacemaker: No HX Cerebrovascular Accident: No Hx Seizures: No Hx Dementia: No Hx Diabetes: No Hx Gastrointestinal Disorders: No Hx Liver Disease: Yes (hep c) Hx Genitourinary Disorders: No Hx Sexually Transmitted Disorders: No Hx Renal Disease (ESRD): No Hx Thyroid Disease: No Hx Human Immunodeficiency Virus (HIV): No (04/24/11-hiv testing -negative) Hx Hepatitis C: Yes (SCHEDULED TO TREAT) Hx Depression: Yes Hx Suicide Attempt: No Hx Bipolar Disorder: No Hx Schizophrenia: No - Patient Surgical History Past Surgical History: No Hx Neurologic Surgery: No Hx Cataract Extraction: No Hx Cardiac Surgery: No Hx Lung Surgery: No Hx Breast Surgery: No Hx Breast Biopsy: No Hx Abdominal Surgery: No Hx Appendectomy: No Hx Cholecystectomy: No Hx Genitourinary Surgery: No Hx Section: No Hx Orthopedic Surgery: No Anesthesia Reaction: No - PPD History Previous Implant?: Yes Documented Results: Positive w/proof PPD to be Administered?: No - Reproductive History Patient is a Female of Child Bearing Age (11 -55 yrs old): No - Smoking Cessation Smoking history: Current every day smoker Have you smoked in the past 12 months: Yes Aproximately how many cigarettes per day: 10 Cigars Per Day: 0 Hx Chewing Tobacco Use: No Initiated information on smoking cessation: Yes 'Breaking Loose' booklet given: 01/16/17 - Substance & Tx. History Hx Alcohol Use: Yes Hx Substance Use: Yes Substance Use Type: Alcohol, Cocaine Hx Substance Use Treatment: Yes (last detox 07/2016 [facility]) - Substances Abused Cocaine Route: Smoking Frequency: 1-2 times per week Amount used: $50-100 Age of first use: 13 Date of Last Use: 01/14/17 Alcohol-beer/cognac Route: Oral Frequency: Daily Amount used: 2-6 pks./1/2 pt. Age of first use: 13 Date of Last Use: 01/15/17 Family Disease History - Family Disease History Family Disease History: Diabetes: Sister, Heart Disease: Mother (), Other: Father () Admission Physical Exam BHS - Vital Signs Vital Signs: Vital Signs - 24 hr 01/16/17 09:00 Temperature 97.5 F L Pulse Rate 75 Respiratory 18 Rate Blood Pressure 122/94 - Physical General Appearance: Yes: Appropriately Dressed, Moderate Distress, Tremorous, Irritable, Sweating, Anxious HEENTM: Yes: Hearing grossly Normal, Normal Voice, Nasal Congestion, Rhinorrhea Respiratory: Yes: Lungs Clear, Normal Breath Sounds, No Respiratory Distress Neck: Yes: Within Normal Limits Breast: Yes: Within Normal Limits Cardiology: Yes: Regular Rhythm, Regular Rate, S1, S2 Abdominal: Yes: Normal Bowel Sounds, Non Tender, Soft Genitourinary: Yes: Within Normal Limits Back: Yes: Normal Inspection Musculoskeletal: Yes: full range of Motion, Muscle Pain Extremities: Yes: Normal Inspection, Tremors Neurological: Yes: Fully Oriented, Alert, Normal Response Integumentary: Yes: Normal Color, Diaphoresis Lymphatic: Yes: Within Normal Limits - Diagnostic (1) Nasal bone fracture Current Visit: Yes Status: Acute Qualifiers: Encounter type: initial encounter Fracture type: closed Qualified Code(s): S02.2XXA - Fracture of nasal bones, initial encounter for closed fracture (2) Alcohol dependence with uncomplicated withdrawal Current Visit: Yes Status: Chronic (3) Cocaine dependence, uncomplicated Current Visit: Yes Status: Chronic (4) Hepatitis C antibody test positive Current Visit: No Status: Chronic Comment: SCHEDULED TO TREAT (5) Nicotine dependence Current Visit: No Status: Chronic Qualifiers: Nicotine product type: cigarettes Substance use status: uncomplicated Qualified Code(s): F17.210 - Nicotine dependence, cigarettes, uncomplicated (6) Head trauma Current Visit: Yes Status: Acute Qualifiers: Encounter type: initial encounter Qualified Code(s): S09.90XA - Unspecified injury of head, initial encounter Comment: pt was seen at [facility] for evaluation and testing. Pt d/c to detox Cleared for Admission [facility] - Detox or Rehab [facility] Level of Care: Medically Managed Detox Regimen/Protocol: Librium [facility] Breath Alcohol Content Breath Alcohol Content: 0.076 Urine Drug Screen - Results Drug Screen Negative: No Urine Drug Screen Results: GENE-Cocaine
[2017-01-16] MEDS ORDERED: MENTHOL/PHENOL 1 EACH UD MM PRN (15:22)
[2017-01-16] MEDS ORDERED: MAG HYDROX/AL HYDROX/SIMETH 30 ML UNIT-DOSE CUP PO PRN (15:22)
[2017-01-16] MEDS ORDERED: MAGNESIUM CITRATE 300 ML BOTTLE PO PRN (15:22)
[2017-01-16] MEDS ORDERED: IBUPROFEN 400 MG TABLET (FP) PO PRN (15:22)
[2017-01-16] MEDS ORDERED: diphenhydrAMINE HCL 50 MG CAPSULE PO PRN (15:22)
[2017-01-16] MEDS ORDERED: guaiFENesin/D-METHORPHAN HB 10 ML UNIT-DOSE CUPS PO PRN (15:22)
[2017-01-16] MEDS ORDERED: NICOTINE POLACRILEX 4 MG GUM BC PRN (15:22)
[2017-01-16] MEDS ORDERED: hydrOXYzine PAMOATE 50 MG CAPSULE (FP) PO PRN (15:22)
[2017-01-16] MEDS ORDERED: MAGNESIUM HYDROX 2400MG/30ML ORAL SUSPENSION 30 ML CUP PO PRN (15:22)
[2017-01-16] MEDS ORDERED: LOPERAMIDE HCL 2 MG CAPSULE PO PRN (15:22)
[2017-01-16] MEDS ORDERED: P-EPHED 60MG/TRIPROLIDI 2.5MG TABLET PO PRN (15:22)
[2017-01-16] MEDS ORDERED: chlordiazePOXIDE HCL 25 MG CAPSULE PO PRN (15:22)
[2017-01-16] MEDS ORDERED: chlordiazePOXIDE HCL 25 MG CAPSULE PO ONE (15:45)
[2017-01-16] MEDS: chlordiazePOXIDE HCL 25 MG CAPSULE PO SCH ×2 (17:14→22:42)
[2017-01-16 18:15] LABS: URINE APPEARANCE TURBID; URINE BILIRUBIN NEGATIVE (NEGATIVE); URINE BLOOD NEGATIVE (NEGATIVE); URINE COLOR YELLOW; URINE GLUCOSE (UA) NEGATIVE (NEGATIVE); URINE KETONE TRACE (NEGATIVE); URINE LEUK ESTERASE NEGATIVE (NEGATIVE); URINE NITRITE NEGATIVE (NEGATIVE); URINE PROTEIN NEGATIVE (NEGATIVE); URINE UROBILINOGEN NEGATIVE mg/dL (0.2-1.0)
[2017-01-16] MEDS: THIAMINE HCL 100 MG TABLET (FP) PO SCH (22:42)
[2017-01-17] MEDS: IBUPROFEN 600 MG TABLET (FP) PO PRN ×3 (05:30→17:20)
[2017-01-17] MEDS: chlordiazePOXIDE HCL 25 MG CAPSULE PO SCH ×4 (05:31→22:33)
[2017-01-17] MEDS: PRENATAL VITAMINS W/ FOLIC ACID TABLET (FP) PO SCH (10:24)
[2017-01-17] MEDS: NICOTINE 21 MG/24 HOURS TOPICAL PATCH TD SCH (10:26)
[2017-01-17 10:40] LABS: MCH 30.8 pg (25.7-33.7); MEAN CELL VOLUME 93.3 fl (80-96); MEAN PLT VOLUME 8.9 fl (7.5-11.1); PLATELET COUNT 288 K/MM3 (134-434); RDW 16.1 % (11.9-15.9)
[2017-01-17 10:49] LABS: ALBUMIN 1.5 g/dl (3.4-5.0); ANION GAP 5 (8-16); CALCIUM 8.8 mg/dL (8.5-10.1); CO2 32 mmol/L (21-32); CREATININE 0.9 mg/dL (0.7-1.3); GLUCOSE,RANDOM 86 mg/dL (74-106); SGOT/AST 47 U/L (15-37); SGPT/ALT 43 U/L (12-78)
[2017-01-17 10:51] LABS: ALK PHOS 86 U/L (45-117); BILIRUBIN,TOTAL 0.6 mg/dL (0.2-1.0)
--- NOTE | 2017-01-17 13:51 | CONSULT ---
[facility] Psychiatric Consult - Data Date of interview: 01/17/17 Admission source: [facility] Identifying data: Another admission to [facility] for this 56 y/o AA male seeking detox treatment on for alcohol and cocaine dependence.Patient is single without children,domiciled and employed. Substance Abuse History: Discussed with the patient.Hemanth Elam confirmed this report. Smoking Cessation. Smoking history: Current every day smoker. Have you smoked in the past 12 months: Yes. Aproximately how many cigarettes per day : 10. Cigars Per Day: 0. Hx Chewing Tobacco Use: No. Initiated information on smoking cessation: Yes. 'Breaking Loose' booklet given: 01/16/17. - Substance & Tx. History. Hx Alcohol Use: Yes. Hx Substance Use: Yes. Substance Use Type: Alcohol, Cocaine. Hx Substance Use Treatment: Yes (last detox 07/2016 [facility]). - Substances Abused. Cocaine. Route: Smoking. Frequency: 1-2 times per week. Amount used: $50-100. Age of first use: 13. Date of Last Use: 01/14/17. Alcohol-beer/cognac. Route: Oral. Frequency: Daily. Amount used: 2-6 pks.// pt. Age of first use: 13. Date of Last Use: 01/15/17 Medical History: Hepatitis C (treatment pending). Psychiatric History: No reported history of psychiatric hospitalizations.Diagnosed with MDD and treated with prozac 40 mg/day.This regimen was initiated in rehabilitation setting at [facility] in [facility].Currrently the patient gets his psychiatric OPD care at the [facility] in the [place].Mr Elam denies history of suicide attempts. Physical/Sexual Abuse/Trauma History: No history of sexual abuse.Heavy history of incarceration for homicide (sent to retirement at age 18 and released at 41) .Currently on parole for life. Additional Comment: Urine Drug Screen Results: GENE-Cocaine.Noted. Mental Status Exam - Mental Status Exam Alert and Oriented to: Time, Place, Person Cognitive Function: Good Patient Appearance: Well Groomed Mood: Hopeful, Euthymic Affect: Appropriate, Normal Range Patient Behavior: Fatigued, Appropriate, Cooperative Speech Pattern: Clear, Appropriate Voice Loudness: Normal Thought Process: Goal Oriented Thought Disorder: Not Present Hallucinations: Denies Suicidal Ideation: Denies Homicidal Ideation: Denies Insight/Judgement: Poor Sleep: Poorly, Difficulty falling asleep Appetite: Good Muscle strength/Tone: Normal Gait/Station: Normal Psychiatric Findings - Problem List ([place] 1, 2,3) (1) Alcohol dependence with uncomplicated withdrawal Current Visit: Yes Status: Acute (2) Cocaine dependence, uncomplicated Current Visit: Yes Status: Acute (3) Nicotine dependence Current Visit: Yes Status: Acute Qualifiers: Nicotine product type: cigarettes Substance use status: uncomplicated Qualified Code(s): F17.210 - Nicotine dependence, cigarettes, uncomplicated (4) Substance induced mood disorder Current Visit: Yes Status: Acute (5) Depressive disorder Current Visit: Yes Status: Chronic (6) Head trauma Current Visit: Yes Status: Acute Qualifiers: Encounter type: initial encounter Qualified Code(s): S09.90XA - Unspecified injury of head, initial encounter Comment: pt was seen at [facility] for evaluation and testing. Pt d/c to detox (7) Nasal bone fracture Current Visit: Yes Status: Acute Qualifiers: Encounter type: initial encounter Fracture type: closed Qualified Code(s): S02.2XXA - Fracture of nasal bones, initial encounter for closed fracture (8) Hepatitis C antibody test positive Current Visit: Yes Status: Chronic Comment: SCHEDULED TO TREAT (9) Insomnia Current Visit: Yes Status: Acute - Initial Treatment Plan Initial Treatment Plan: Psychoeducation.Detoxification.Prozac 40 mg po daily.Side effects/benefits discussed with the patient.Made aware of risk of sexual dysfunction and suicidal idetion.Mr Elam consents (verbally) to continue prozac in this treatment course.Observation.
--- NOTE | 2017-01-17 15:02 | PN ---
S CIWA - CIWA Score Nausea/Vomitin-Mild Nausea/No Vomiting Muscle Tremors: 3 Anxiety: 4-Mod. Anxious/Guarded Agitation: 3 Paroxysmal Sweats: 1-Minimal Palms Moist Orientation: 0-Oriented Tacttile Disturbances: 3-Moderate Itch/Numb/Burn Auditory Disturbances: 0-None Visual Disturbances: 0-None Headache: 0-None Present CIWA-Ar Total Score: 15 [facility]HS Progress Note (SOAP) Subjective: Body Aches, Tremors. Objective: PT. A & O X 3, OBSERVED AMBULATING ON UNIT. NO ACUTE DISTRESS. 01/17/17 15:00 Vital Signs Temperature 98.9 F 01/17/17 09:37 Pulse Rate 86 01/17/17 09:37 Respiratory Rate 18 01/17/17 09:37 Blood Pressure 103/67 01/17/17 09:37 O2 Sat by Pulse Oximetry (%) Laboratory Tests 01/16/17 01/17/17 01/17/17 17:50 06:10 06:10 WBC 7.0 RBC 4.32 Hgb 13.3 Hct 40.3 MCV 93.3 MCH 30.8 MCHC 33.0 RDW 16.1 H Plt Count 288 MPV 8.9 Sodium 140 Potassium 4.2 Chloride 103 Carbon Dioxide 32 Anion Gap 5 L BUN 12 Creatinine 0.9 Creat Clearance w eGFR > 60 Random Glucose 86 Calcium 8.8 Total Bilirubin 0.6 D AST 47 H D ALT 43 D Alkaline Phosphatase 86 Total Protein 8.0 D Albumin 1.5 L D Urine Color Yellow Urine Appearance Turbid Urine pH 5.0 Ur Specific [place] >= 1.030 H Urine Protein Negative Urine Glucose (UA) Negative Urine Ketones Trace H Urine Blood Negative Urine Nitrite Negative Urine Bilirubin Negative Urine Urobilinogen Negative Ur Leukocyte Esterase Negative RPR Titer 01/17/17 06:10 WBC RBC Hgb Hct MCV MCH MCHC RDW Plt Count MPV Sodium Potassium Chloride Carbon Dioxide Anion Gap BUN Creatinine Creat Clearance w eGFR Random Glucose Calcium Total Bilirubin AST ALT Alkaline Phosphatase Total Protein Albumin Urine Color Urine Appearance Urine pH Ur Specific [place] Urine Protein Urine Glucose (UA) Urine Ketones Urine Blood Urine Nitrite Urine Bilirubin Urine Urobilinogen Ur Leukocyte Esterase RPR Titer Nonreactive LABS NOTED. Assessment: 01/17/17 15:01 WITHDRAWAL SYMPTOMS. Plan: CONTINUE DETOX.
[2017-01-17] MEDS: TETRAHYDROZOLINE HCL 1 DROP DROPS OU PRN (17:18)
[2017-01-17] MEDS: THIAMINE HCL 100 MG TABLET (FP) PO SCH (22:33)
[2017-01-18] MEDS: chlordiazePOXIDE HCL 25 MG CAPSULE PO SCH ×2 (05:20→10:29)
[2017-01-18] MEDS: ACETAMINOPHEN 325 MG TABLET (FP) PO PRN (05:21)
[2017-01-18] MEDS: TETRAHYDROZOLINE HCL 1 DROP DROPS OU PRN (05:22)
[2017-01-18] MEDS: PRENATAL VITAMINS W/ FOLIC ACID TABLET (FP) PO SCH (10:28)
[2017-01-18] MEDS: FLUoxetine HCL 20 MG CAPSULE (FP) PO SCH (10:28)
[2017-01-18] MEDS: NICOTINE 21 MG/24 HOURS TOPICAL PATCH TD SCH (10:29)
[2017-01-18] MEDS: IBUPROFEN 600 MG TABLET (FP) PO PRN ×3 (10:30→23:28)
[2017-01-18] MEDS: chlordiazePOXIDE 5 MG CAPSULE PO SCH ×2 (17:37→22:35)
--- NOTE | 2017-01-18 17:59 | PN ---
[facility] CIWA - CIWA Score Nausea/Vomitin Muscle Tremors: 3 Anxiety: 3 Agitation: 3 Paroxysmal Sweats: 3 Orientation: 0-Oriented Tacttile Disturbances: 1-Very Mild Itch/Numbness Auditory Disturbances: 0-None Visual Disturbances: 0-None Headache: 1-Very Mild CIWA-Ar Total Score: 17 [facility] Progress Note (SOAP) Subjective: Sweating, chills, tremor, anxious, nausea Objective: 01/18/17 17:58 Last Vital Signs Temp Pulse Resp BP Pulse Ox 97.3 F L 71 18 99/74 01/18/17 14:17 01/18/17 14:17 01/18/17 14:17 01/18/17 14:17 Laboratory Tests 01/16/17 01/17/17 01/17/17 17:50 06:10 06:10 WBC 7.0 RBC 4.32 Hgb 13.3 Hct 40.3 MCV 93.3 MCH 30.8 MCHC 33.0 RDW 16.1 H Plt Count 288 MPV 8.9 Sodium 140 Potassium 4.2 Chloride 103 Carbon Dioxide 32 Anion Gap 5 L BUN 12 Creatinine 0.9 Creat Clearance w eGFR > 60 Random Glucose 86 Calcium 8.8 Total Bilirubin 0.6 D AST 47 H D ALT 43 D Alkaline Phosphatase 86 Total Protein 8.0 D Albumin 1.5 L D Urine Color Yellow Urine Appearance Turbid Urine pH 5.0 Ur Specific [place] >= 1.030 H Urine Protein Negative Urine Glucose (UA) Negative Urine Ketones Trace H Urine Blood Negative Urine Nitrite Negative Urine Bilirubin Negative Urine Urobilinogen Negative Ur Leukocyte Esterase Negative RPR Titer 01/17/17 06:10 WBC RBC Hgb Hct MCV MCH MCHC RDW Plt Count MPV Sodium Potassium Chloride Carbon Dioxide Anion Gap BUN Creatinine Creat Clearance w eGFR Random Glucose Calcium Total Bilirubin AST ALT Alkaline Phosphatase Total Protein Albumin Urine Color Urine Appearance Urine pH Ur Specific [place] Urine Protein Urine Glucose (UA) Urine Ketones Urine Blood Urine Nitrite Urine Bilirubin Urine Urobilinogen Ur Leukocyte Esterase RPR Titer Nonreactive Labs noted Assessment: 01/18/17 17:59 Withdrawal symptoms Plan: Continue detox
--- NOTE | 2017-01-18 22:32 | EKG ---
Test Reason : Blood Pressure : / mmHG Vent. Rate : 070 BPM Atrial Rate : 070 BPM P-R Int : 130 ms QRS Dur : 084 ms QT Int : 418 ms P-R-T Axes : 018 -08 040 degrees QTc Int : 451 ms NORMAL SINUS RHYTHM VOLTAGE CRITERIA FOR LEFT VENTRICULAR HYPERTROPHY ABNORMAL ECG WHEN COMPARED WITH ECG OF 31-JUL-2016 23:08, NO SIGNIFICANT CHANGE WAS FOUND Confirmed by DIEGO GALARZA MD ([id number]) on 01/18/2017 10:32:01 PM Referred By: Slim Irwin Confirmed By:DIEGO GALARZA MD
[2017-01-18] MEDS: THIAMINE HCL 100 MG TABLET (FP) PO SCH (22:35)
[2017-01-19] MEDS: chlordiazePOXIDE 5 MG CAPSULE PO SCH ×2 (05:51→10:37)
[2017-01-19] MEDS: IBUPROFEN 600 MG TABLET (FP) PO PRN (05:52)
[2017-01-19] MEDS: TETRAHYDROZOLINE HCL 1 DROP DROPS OU PRN (05:55)
--- NOTE | 2017-01-19 09:52 | PN ---
[facility] Progress Note (SOAP) Subjective: nausea, sweats, interrupted sleep, anxiety, tremors Objective: 01/19/17 09:50 Vital Signs - 8 hr 01/19/17 01/19/17 01/19/17 04:29 06:15 09:16 Temperature 97 F L 97.1 F L Pulse Rate 67 76 Respiratory 18 18 18 Rate Blood Pressure 91/71 97/73 Laboratory Tests 01/16/17 01/17/17 01/17/17 17:50 06:10 06:10 WBC 7.0 RBC 4.32 Hgb 13.3 Hct 40.3 MCV 93.3 MCH 30.8 MCHC 33.0 RDW 16.1 H Plt Count 288 MPV 8.9 Sodium 140 Potassium 4.2 Chloride 103 Carbon Dioxide 32 Anion Gap 5 L BUN 12 Creatinine 0.9 Creat Clearance w eGFR > 60 Random Glucose 86 Calcium 8.8 Total Bilirubin 0.6 D AST 47 H D ALT 43 D Alkaline Phosphatase 86 Total Protein 8.0 D Albumin 1.5 L D Urine Color Yellow Urine Appearance Turbid Urine pH 5.0 Ur Specific [place] >= 1.030 H Urine Protein Negative Urine Glucose (UA) Negative Urine Ketones Trace H Urine Blood Negative Urine Nitrite Negative Urine Bilirubin Negative Urine Urobilinogen Negative Ur Leukocyte Esterase Negative RPR Titer 01/17/17 06:10 WBC RBC Hgb Hct MCV MCH MCHC RDW Plt Count MPV Sodium Potassium Chloride Carbon Dioxide Anion Gap BUN Creatinine Creat Clearance w eGFR Random Glucose Calcium Total Bilirubin AST ALT Alkaline Phosphatase Total Protein Albumin Urine Color Urine Appearance Urine pH Ur Specific [place] Urine Protein Urine Glucose (UA) Urine Ketones Urine Blood Urine Nitrite Urine Bilirubin Urine Urobilinogen Ur Leukocyte Esterase RPR Titer Nonreactive labs noted Assessment: 01/19/17 09:51 withdrawal sx, malnutirion 2/2 substance use and liver disease Plan: cont detox, fluids, ensure plus , encourage ambulations
[2017-01-19] MEDS: PRENATAL VITAMINS W/ FOLIC ACID TABLET (FP) PO SCH (10:36)
[2017-01-19] MEDS: NICOTINE 21 MG/24 HOURS TOPICAL PATCH TD SCH (10:36)
[2017-01-19] MEDS: FLUoxetine HCL 20 MG CAPSULE (FP) PO SCH (10:36)
[2017-01-19] MEDS: ACETAMINOPHEN 325 MG TABLET (FP) PO PRN (10:38)
--- NOTE | 2017-01-19 12:50 | PN ---
[facility] Progress Note Note: Patient is medically stable, wishes to be discharged home today and not stay an additional 24 hours. tolerating libirum without sedation, comfortable no withdrawal sx reported, needs to see primary care phsyician for follow up . will d/c today.
--- NOTE | 2017-01-19 12:55 | DS ---
[facility] Detox Discharge Summary Admission Date: 01/16/17 Discharge Date: 01/19/17 - History Present History: Alcohol Dependence, Cocaine Dependence Pertinent Past History: head trauma, insomia, anxiety, depression, pain from falling on head - Physical Exam Results Vital Signs: Vital Signs Temperature 97.1 F L 01/19/17 09:16 Pulse Rate 76 01/19/17 09:16 Respiratory Rate 18 01/19/17 09:16 Blood Pressure 97/73 01/19/17 09:16 O2 Sat by Pulse Oximetry (%) Pertinent Admission Physical Exam Findings: withdrawal sx on admission, head trauma noted a and oriented x3 - Treatment Hospital Course: Detox Protocol Followed, Detoxed Safely, Responded well, Discharged Condition Good, Rehab Referral Accepted - Medication Discharge Medications: Ambulatory Orders Fluoxetine HCl [Prozac -] 40 mg PO DAILY 01/16/17 Ibuprofen [Motrin -] 600 mg PO TID 01/16/17 Fluoxetine HCl [Prozac -] 40 mg PO DAILY #60 capsule 01/17/17 - Diagnosis (1) Alcohol dependence with uncomplicated withdrawal Current Visit: Yes Status: Chronic (2) Cocaine dependence, uncomplicated Current Visit: Yes Status: Chronic (3) Head trauma Current Visit: Yes Status: Acute Qualifiers: Encounter type: initial encounter Qualified Code(s): S09.90XA - Unspecified injury of head, initial encounter (4) Insomnia Current Visit: Yes Status: Acute (5) Nasal bone fracture Current Visit: Yes Status: Acute Qualifiers: Encounter type: initial encounter Fracture type: closed Qualified Code(s): S02.2XXA - Fracture of nasal bones, initial encounter for closed fracture (6) Nicotine dependence Current Visit: Yes Status: Chronic Qualifiers: Nicotine product type: cigarettes Substance use status: uncomplicated Qualified Code(s): F17.210 - Nicotine dependence, cigarettes, uncomplicated (7) Substance induced mood disorder Current Visit: Yes Status: Acute (8) Depressive disorder Current Visit: Yes Status: Suspected (9) Hepatitis C antibody test positive Current Visit: Yes Status: Chronic - AMA Did Patient Leave Against Medical Advice: No
[2017-01-19 13:19] VITALS: BP 106/74; PULSE 78; TEMP 98.9
[2017-01-19] MEDS ORDERED: chlordiazePOXIDE HCL 10 MG CAPSULE PO SCH (17:00)
== END 2017-01-19 14:06 | disposition home or self-care (01) | DRG 774 ==
LOC: YASAS 08:27 → Y3N 14:53
PROVIDERS: ADMIT Internal Medicine Addiction Medicine; ATTEND Internal Medicine Addiction Medicine
PROC: HZ2ZZZZ Detoxification Services for Substance Abuse Treatment (ICD-10-PCS; principal; 2017-01-16)
DX: F10.230 Alcohol dependence with withdrawal, uncomplicated (principal); F14.20 Cocaine dependence, uncomplicated; F17.210 Nicotine dependence, cigarettes, uncomplicated; F19.24 Other psychoactive substance dependence with psychoactive substance-induced mood disorder; F32.9 Major depressive disorder, single episode, unspecified; B18.2 Chronic viral hepatitis C; G47.00 Insomnia, unspecified; E46 Unspecified protein-calorie malnutrition; Z68.24 Body mass index [BMI] 24.0-24.9, adult; S09.90XD Unspecified injury of head, subsequent encounter; S02.2XXD Fracture of nasal bones, subsequent encounter for fracture with routine healing; W19.XXXD Unspecified fall, subsequent encounter
CPT/HCPCS: 36415; 80053; 81003; 85027; 86593; 93005; 93010

== ENCOUNTER 2017-01-16 11:48 | Emergency (ER) | payer OTHER ==
[2017-01-16 12:04] VITALS: PULSE 73; TEMP 98.3; BMI 29.0
--- NOTE | 2017-01-16 12:55 | PDOC ---
History of Present Illness - General Chief Complaint: Headache Stated Complaint: Headache Time Seen by Provider: 01/16/17 12:04 History Source: Patient Exam Limitations: No Limitations - History of Present Illness Initial Comments: 01/16/17 12:25 56-year-old male With history of alcohol and drug abuse presents to the ED with complaints of right temporal right jaw and right forehead pain after awakening up this morning at a nearby fpc. Patient was drinking last night and next thing he knows he woke up at a fpc this morning. Patient was going to go back to the detox center which he went to a few days prior but was told the beds were full and to return later this week if patient still requires detox. Patient has no complaints of visual changes, hearing loss , neck pain, occipital pain but does state has difficulty opening closing history jaw due to pain. Patient is on no blood thinners Timing/Duration: reports: 4-6 hours Severity: Yes: moderate Associated Symptoms: reports: other Past History - Travel Traveled outside of the country in the last 30 days: No Close contact w/someone who was outside of country & ill: No - Past Medical History Allergies/Adverse Reactions: Allergies Allergy/AdvReac Type Severity Reaction Status Date / Time No Known Allergies Allergy Verified 01/16/17 11:52 Home Medications: Ambulatory Orders Fluoxetine HCl [Prozac -] 40 mg PO DAILY 01/16/17 Ibuprofen [Motrin -] 600 mg PO TID 01/16/17 Anemia: No Asthma: No Cancer: No Cardiac Disorders: No CVA: No COPD: No CHF: No Dementia: No Diabetes: No GI Disorders: No Disorders: No HTN: No Hypercholesterolemia: No Kidney Stones: No Liver Disease: Yes (hep c) Psychiatric Problems: Yes (depression) Suicide Attempt (Hx): No Seizures: No Thyroid Disease: No Other medical history: coccaine and alcohol abuse - Surgical History Abdominal Surgery: No Appendectomy: No Cardiac Surgery: No Cholecystectomy: No Lung Surgery: No Neurologic Surgery: No Orthopedic Surgery: No - Reproductive History Testicular Surgery: No - Immunization History Immunization Up to Date: Yes - Psycho/Social/Smoking Cessation Hx Anxiety: Yes Suicidal Ideation: No Smoking History: Current every day smoker Have you smoked in the past 12 months: Yes Number of Cigarettes Smoked Daily: 10 Cigars Per Day: 0 Information on smoking cessation initiated: No 'Breaking Loose' booklet given: 07/24/16 Hx Alcohol Use: No Drug/Substance Use Hx: No Substance Use Type: Alcohol, Cocaine Hx Substance Use Treatment: Yes Patient Lives Alone: Yes Lives with/in: homeless Review of Systems - Review of Systems Able to Perform ROS?: Yes Constitutional: No: Symptoms Reported HEENTM: No: Symptoms Reported Respiratory: No: Symptoms reported Cardiac (ROS): No: Symptoms Reported ABD/GI: No: Symptoms Reported : No: Symptoms Reported Musculoskeletal: Yes: Muscle Pain (right temporal/face) Integumentary: Yes: Lumps (right temporal) Neurological: Yes: Headache (rt temporal). No: Weakness, Dizziness Hematologic/Lymphatic: No: Symptoms Reported *Physical Exam - Vital Signs Last Vital Signs Temp Pulse Resp BP Pulse Ox 98.3 F 73 18 121/88 97 01/16/17 11:53 01/16/17 11:53 01/16/17 11:53 01/16/17 11:53 01/16/17 11:53 - Physical Exam General Appearance: Yes: Nourished, Appropriately Dressed. No: Apparent Distress HEENT: positive: EOMI, [place], TMs Normal (no hemotympanum) Neck: positive: Supple. negative: Tender, Decreased range of motion Respiratory/Chest: positive: Lungs Clear, Normal Breath Sounds. negative: Chest Tender, Respiratory Distress, Accessory Muscle Use Cardiovascular: positive: Regular Rhythm, Regular Rate. negative: Murmur Gastrointestinal/Abdominal: positive: Soft. negative: Tenderness Integumentary: positive: Other (noted 3cm raised mass over right temporal with tenderness over right mandible angle, lateral aspect of orbital floor and temporal region. no crepitus no deformity). negative: Ecchymosis Neurologic: positive: Normal Mood/Affect, Motor Strength 5/5 ED Treatment Course - RADIOLOGY Radiology Studies Ordered: Category Date Time Status CERVICAL SPINE CT W/O CONTR [CT] Stat CT Scan 01/16/17 12:[address] W/O CONTRAST [CT] Stat CT Scan 01/16/17 12:[address] WITHOUT CONTRAST [CT] Stat CT Scan 01/16/17 12:16 Ordered Medical Decision Making - Medical Decision Making 01/16/17 13:04 Patient status post injury to the right side of his face of unknown etiology. Patient states was intoxicated night before and awoke in a homeless fpc with no recollection of how he got there. Patient has history of drug and alcohol abuse currently on his way to a detox program at [facility] when staff stated he needed to be cleared from the ER prior to being accepted into the facility. Patient exam had swelling to his right temporal without crepitus or deformity. Patient no tenderness to the frontal bone but mild tenderness noted to the lateral aspect of orbital floor. Patient no signs of entrapment or visual impairment. Patient ordered for facial, head and neck CT 01/16/17 13:[address] shows no acute bony abnormalities. Head CT negative for intracranial pathology. Facial CT shows right nasal bone fracture with soft tissue swelling and minimal medial displacement. Otherwise there is no evidence of mandible fracture or temporal bone injury. Also noticed intact orbital karimi. Patient will be discharged back with security to [facility] for detox *DC/Admit/Observation/Transfer Diagnosis at time of Disposition: Fracture of nasal bone Qualifiers: Encounter type: initial encounter Fracture type: closed Qualified Code(s): S02.2XXA - Fracture of nasal bones, initial encounter for closed fracture - Discharge Dispostion Disposition: HOME Condition at time of disposition: Good - Referrals Referrals: Pio Lew MD [Staff Physician] - - Patient Instructions Printed Discharge Instructions: DI for Closed Head Injury, DI for Nose Fracture Additional Instructions: May give patient Tylenol for discomfort and inflammation. May apply ice to the affected area for the next 3 days. Patient may follow-up with ENT upon discharge.
[2017-01-16 13:57] VITALS: BP 143/99
== END 2017-01-16 13:58 | disposition home or self-care (01) ==
LOC: JER 11:48
DX: S02.2XXA Fracture of nasal bones, initial encounter for closed fracture (principal); X58.XXXA Exposure to other specified factors, initial encounter; Y93.9 Activity, unspecified; B18.2 Chronic viral hepatitis C; F32.9 Major depressive disorder, single episode, unspecified; F10.10 Alcohol abuse, uncomplicated; F14.10 Cocaine abuse, uncomplicated; Z59.0 Homelessness
CPT/HCPCS: 70450-TC; 70486-TC; 72125-TC; 99281-25

== ENCOUNTER 2017-02-16 10:48 | Inpatient (IN) | payer OTHER ==
[2017-02-16 11:02] VITALS: BMI 28.8
[2017-02-16] MEDS ORDERED: MAG HYDROX/AL HYDROX/SIMETH 30 ML UNIT-DOSE CUP PO PRN (13:21)
[2017-02-16] MEDS ORDERED: MENTHOL/PHENOL 1 EACH UD MM PRN (13:21)
[2017-02-16] MEDS ORDERED: guaiFENesin/D-METHORPHAN HB 10 ML UNIT-DOSE CUPS PO PRN (13:21)
[2017-02-16] MEDS ORDERED: P-EPHED 60MG/TRIPROLIDI 2.5MG TABLET PO PRN (13:21)
[2017-02-16] MEDS ORDERED: MAGNESIUM HYDROX 2400MG/30ML ORAL SUSPENSION 30 ML CUP PO PRN (13:21)
[2017-02-16] MEDS ORDERED: NICOTINE POLACRILEX 4 MG GUM BUC PRN (13:21)
[2017-02-16] MEDS ORDERED: hydrOXYzine PAMOATE 50 MG CAPSULE (FP) PO PRN (13:21)
[2017-02-16] MEDS ORDERED: ACETAMINOPHEN 325 MG TABLET (FP) PO PRN (13:21)
[2017-02-16] MEDS ORDERED: LOPERAMIDE HCL 2 MG CAPSULE PO PRN (13:21)
[2017-02-16] MEDS ORDERED: MAGNESIUM CITRATE 300 ML BOTTLE PO PRN (13:21)
--- NOTE | 2017-02-16 13:21 | HP ---
SKINNY SILVESTRE Rehab Assess/Revision - Admission History Admitted to Rehab from: [facility] - Vital signs Vital Signs: Vital Signs Period Temp Pulse Resp BP Sys/Leal Pulse Ox Last 24 Hr 97.8 F 81 18 125/88 - Findings Detox History & Physical reviewed: Yes Concur with findings: Yes
[2017-02-16 16:30] LABS: URINE APPEARANCE CLEAR; URINE BILIRUBIN NEGATIVE (NEGATIVE); URINE BLOOD NEGATIVE (NEGATIVE); URINE COLOR YELLOW; URINE GLUCOSE (UA) NEGATIVE (NEGATIVE); URINE KETONE NEGATIVE (NEGATIVE); URINE LEUK ESTERASE NEGATIVE (NEGATIVE); URINE NITRITE NEGATIVE (NEGATIVE); URINE PROTEIN NEGATIVE (NEGATIVE); URINE UROBILINOGEN NEGATIVE mg/dL (0.2-1.0)
[2017-02-16] MEDS: IBUPROFEN 400 MG TABLET (FP) PO PRN (18:14)
[2017-02-16] MEDS: diphenhydrAMINE HCL 50 MG CAPSULE PO PRN (21:19)
[2017-02-16] MEDS: THIAMINE HCL 100 MG TABLET (FP) PO SCH (21:19)
[2017-02-17 09:48] LABS: MCH 30.8 pg (25.7-33.7); MCHC 32.9 g/dl (32.0-35.9); MEAN CELL VOLUME 93.6 fl (80-96); PLATELET COUNT 309 K/MM3 (134-434); RDW 15.2 % (11.9-15.9); WHITE BLOOD COUNT 9.2 K/mm3 (4.0-10.0)
[2017-02-17 10:25] LABS: ALK PHOS 85 U/L (45-117); ANION GAP 5 (8-16); BILIRUBIN,TOTAL 0.5 mg/dL (0.2-1.0); CALCIUM 9.2 mg/dL (8.5-10.1); CO2 30 mmol/L (21-32); GLUCOSE,RANDOM 98 mg/dL (74-106); SGOT/AST 33 U/L (15-37); SGPT/ALT 48 U/L (12-78); TOT PROT 8.2 g/dl (6.4-8.2)
[2017-02-17] MEDS: PRENATAL VITAMINS W/ FOLIC ACID TABLET (FP) PO SCH (10:27)
[2017-02-17] MEDS: NICOTINE 21 MG/24 HOURS TOPICAL PATCH TD SCH (10:27)
[2017-02-17] MEDS: IBUPROFEN 400 MG TABLET (FP) PO PRN ×2 (10:28→21:28)
--- NOTE | 2017-02-17 10:50 | HP ---
Psychiatrist Admission - Data Date of interview: 02/17/17 Identifying data: This is the second 5N inpatient rehabilitation admission for this 55 year old single male with no children, patient is single without children, domiciled residing with his fiance in the [place] and he is employed. Medical History: Arthritis, Hepatitis C (treatment pending), smoks cigarettes 1/ 2 PPD. Psychiatric History: Patient repots a short treatment for anxiety and depression while in the treatment at [facility] in 2012, states was put on Zoloft, took only 2 weeeks then stopped "it did not work", no history of psychiatric hospitalizations, patient reports currently on Prozac 40 mg daily which he started while at [facility] and continued his treatment at [facility] in the [place]. Physical/Sexual Abuse/Trauma History: Denies history of sexual, physical and verbal abuse. Vital Signs: Vital Signs - 24 hr 02/17/17 02/17/17 02/17/17 00:30 03:29 06:00 Temperature 98.1 F Pulse Rate 65 Respiratory 18 18 18 Rate Blood Pressure 100/55 Allergies/Adverse Reactions: Allergies Allergy/AdvReac Type Severity Reaction Status Date / Time No Known Allergies Allergy Verified 02/16/17 13:07 Date of last physical exam: 02/16/17 Concur with the findings of this exam: Yes - Substance Abuse/Tx History Hx Alcohol Use: Yes Hx Substance Use: Yes Substance Use Type: Alcohol (beer daily 4 -22 oz), Cocaine ($40 to 60 every other day.) Hx Substance Use Treatment: Yes Mental Status Exam - Mental Status Exam Alert and Oriented to: Time, Place, Person Cognitive Function: Good Patient Appearance: Well Groomed Mood: Hopeful Affect: Appropriate, Mood Congruent Patient Behavior: Appropriate, Cooperative Speech Pattern: Clear, Appropriate Voice Loudness: Normal Thought Process: Intact, Goal Oriented Thought Disorder: Not Present Hallucinations: Denies Suicidal Ideation: Denies Homicidal Ideation: Denies Insight/Judgement: Fair Sleep: Fair Appetite: Fair Muscle strength/Tone: Normal Gait/Station: Normal Psychiatric Findings - Problem List ([place] 1, 2,3) (1) Cocaine dependence, uncomplicated Current Visit: Yes Status: Chronic (2) Nicotine dependence Current Visit: Yes Status: Chronic Qualifiers: Nicotine product type: cigarettes Substance use status: uncomplicated Qualified Code(s): F17.210 - Nicotine dependence, cigarettes, uncomplicated (3) MDD (major depressive disorder) Current Visit: Yes Status: Acute (4) Alcohol dependence Current Visit: Yes Status: Acute - Initial Treatment Plan Initial Treatment Plan: Patient will continue his medication, monitor progress as needed.
[2017-02-17] MEDS: GABAPENTIN 400 MG CAPSULE (FP) PO SCH ×2 (14:32→21:27)
[2017-02-17] MEDS: diphenhydrAMINE HCL 50 MG CAPSULE PO PRN (21:27)
[2017-02-17] MEDS: THIAMINE HCL 100 MG TABLET (FP) PO SCH (21:27)
[2017-02-18] MEDS: GABAPENTIN 400 MG CAPSULE (FP) PO SCH ×3 (06:46→21:21)
[2017-02-18] MEDS: FLUoxetine HCL 20 MG CAPSULE (FP) PO SCH (09:48)
[2017-02-18] MEDS: PRENATAL VITAMINS W/ FOLIC ACID TABLET (FP) PO SCH (09:48)
[2017-02-18] MEDS: NICOTINE 21 MG/24 HOURS TOPICAL PATCH TD SCH (09:48)
[2017-02-18] MEDS: IBUPROFEN 400 MG TABLET (FP) PO PRN ×2 (09:49→21:23)
--- NOTE | 2017-02-18 09:50 | EKG ---
Test Reason : Blood Pressure : / mmHG Vent. Rate : 065 BPM Atrial Rate : 065 BPM P-R Int : 142 ms QRS Dur : 088 ms QT Int : 416 ms P-R-T Axes : 039 -03 047 degrees QTc Int : 432 ms NORMAL SINUS RHYTHM MODERATE VOLTAGE CRITERIA FOR LVH, MAY BE NORMAL VARIANT BORDERLINE ECG WHEN COMPARED WITH ECG OF 16-JAN-2017 15:58, NO SIGNIFICANT CHANGE WAS FOUND Confirmed by NONI SILVESTRE, ARRON ([id number]) on 02/18/2017 9:50:17 AM Referred By: Jenifer Spears Confirmed By:ARRON CHENEY MD
[2017-02-18] MEDS: diphenhydrAMINE HCL 50 MG CAPSULE PO PRN (21:22)
[2017-02-18] MEDS: THIAMINE HCL 100 MG TABLET (FP) PO SCH (21:22)
[2017-02-19] MEDS: GABAPENTIN 400 MG CAPSULE (FP) PO SCH ×3 (06:30→21:23)
[2017-02-19] MEDS: PRENATAL VITAMINS W/ FOLIC ACID TABLET (FP) PO SCH (10:09)
[2017-02-19] MEDS: NICOTINE 21 MG/24 HOURS TOPICAL PATCH TD SCH (10:10)
[2017-02-19] MEDS: FLUoxetine HCL 20 MG CAPSULE (FP) PO SCH (10:10)
[2017-02-19] MEDS: THIAMINE HCL 100 MG TABLET (FP) PO SCH (21:23)
[2017-02-20] MEDS: GABAPENTIN 400 MG CAPSULE (FP) PO SCH ×3 (06:08→21:28)
[2017-02-20] MEDS: PRENATAL VITAMINS W/ FOLIC ACID TABLET (FP) PO SCH (10:12)
[2017-02-20] MEDS: FLUoxetine HCL 20 MG CAPSULE (FP) PO SCH (10:12)
[2017-02-20] MEDS: NICOTINE 21 MG/24 HOURS TOPICAL PATCH TD SCH (11:24)
[2017-02-20] MEDS: diphenhydrAMINE HCL 50 MG CAPSULE PO PRN (21:28)
[2017-02-20] MEDS: THIAMINE HCL 100 MG TABLET (FP) PO SCH (21:28)
[2017-02-21] MEDS: GABAPENTIN 400 MG CAPSULE (FP) PO SCH ×3 (06:33→21:20)
[2017-02-21] MEDS: FLUoxetine HCL 20 MG CAPSULE (FP) PO SCH (10:03)
[2017-02-21] MEDS: PRENATAL VITAMINS W/ FOLIC ACID TABLET (FP) PO SCH (10:03)
[2017-02-21] MEDS: NICOTINE 21 MG/24 HOURS TOPICAL PATCH TD SCH (10:04)
[2017-02-21] MEDS: diphenhydrAMINE HCL 50 MG CAPSULE PO PRN (21:20)
[2017-02-21] MEDS: IBUPROFEN 400 MG TABLET (FP) PO PRN (21:20)
[2017-02-21] MEDS: THIAMINE HCL 100 MG TABLET (FP) PO SCH (21:20)
[2017-02-22] MEDS: GABAPENTIN 400 MG CAPSULE (FP) PO SCH ×3 (06:15→21:20)
[2017-02-22] MEDS: PRENATAL VITAMINS W/ FOLIC ACID TABLET (FP) PO SCH (10:07)
[2017-02-22] MEDS: FLUoxetine HCL 20 MG CAPSULE (FP) PO SCH (10:07)
[2017-02-22] MEDS: NICOTINE 21 MG/24 HOURS TOPICAL PATCH TD SCH (10:08)
[2017-02-22] MEDS: THIAMINE HCL 100 MG TABLET (FP) PO SCH (21:20)
[2017-02-22] MEDS: diphenhydrAMINE HCL 50 MG CAPSULE PO PRN (21:20)
[2017-02-23] MEDS: GABAPENTIN 400 MG CAPSULE (FP) PO SCH ×3 (06:21→21:28)
[2017-02-23] MEDS: NICOTINE 21 MG/24 HOURS TOPICAL PATCH TD SCH (10:05)
[2017-02-23] MEDS: FLUoxetine HCL 20 MG CAPSULE (FP) PO SCH (10:05)
[2017-02-23] MEDS: PRENATAL VITAMINS W/ FOLIC ACID TABLET (FP) PO SCH (10:05)
[2017-02-23] MEDS: IBUPROFEN 400 MG TABLET (FP) PO PRN (10:06)
[2017-02-23] MEDS: THIAMINE HCL 100 MG TABLET (FP) PO SCH (21:28)
[2017-02-23] MEDS: diphenhydrAMINE HCL 50 MG CAPSULE PO PRN (21:29)
[2017-02-24] MEDS: GABAPENTIN 400 MG CAPSULE (FP) PO SCH ×3 (06:04→21:19)
[2017-02-24] MEDS: FLUoxetine HCL 20 MG CAPSULE (FP) PO SCH (10:00)
[2017-02-24] MEDS: PRENATAL VITAMINS W/ FOLIC ACID TABLET (FP) PO SCH (10:00)
[2017-02-24] MEDS: NICOTINE 21 MG/24 HOURS TOPICAL PATCH TD SCH (10:00)
[2017-02-24] MEDS: IBUPROFEN 400 MG TABLET (FP) PO PRN (20:02)
[2017-02-24] MEDS: THIAMINE HCL 100 MG TABLET (FP) PO SCH (21:19)
[2017-02-24] MEDS: diphenhydrAMINE HCL 50 MG CAPSULE PO PRN (21:19)
[2017-02-25] MEDS: GABAPENTIN 400 MG CAPSULE (FP) PO SCH ×3 (06:39→21:19)
[2017-02-25] MEDS: NICOTINE 21 MG/24 HOURS TOPICAL PATCH TD SCH (09:54)
[2017-02-25] MEDS: FLUoxetine HCL 20 MG CAPSULE (FP) PO SCH (09:54)
[2017-02-25] MEDS: PRENATAL VITAMINS W/ FOLIC ACID TABLET (FP) PO SCH (09:54)
[2017-02-25] MEDS: IBUPROFEN 400 MG TABLET (FP) PO PRN (18:47)
[2017-02-25] MEDS: diphenhydrAMINE HCL 50 MG CAPSULE PO PRN (21:19)
[2017-02-25] MEDS: THIAMINE HCL 100 MG TABLET (FP) PO SCH (21:19)
[2017-02-26] MEDS: GABAPENTIN 400 MG CAPSULE (FP) PO SCH ×3 (06:15→21:31)
[2017-02-26] MEDS: FLUoxetine HCL 20 MG CAPSULE (FP) PO SCH (09:43)
[2017-02-26] MEDS: NICOTINE 21 MG/24 HOURS TOPICAL PATCH TD SCH (09:43)
[2017-02-26] MEDS: PRENATAL VITAMINS W/ FOLIC ACID TABLET (FP) PO SCH (09:43)
[2017-02-26] MEDS: diphenhydrAMINE HCL 50 MG CAPSULE PO PRN (21:31)
[2017-02-26] MEDS: THIAMINE HCL 100 MG TABLET (FP) PO SCH (21:31)
[2017-02-27] MEDS: GABAPENTIN 400 MG CAPSULE (FP) PO SCH ×3 (06:08→21:21)
[2017-02-27] MEDS: FLUoxetine HCL 20 MG CAPSULE (FP) PO SCH (10:01)
[2017-02-27] MEDS: NICOTINE 21 MG/24 HOURS TOPICAL PATCH TD SCH (10:01)
[2017-02-27] MEDS: PRENATAL VITAMINS W/ FOLIC ACID TABLET (FP) PO SCH (10:01)
[2017-02-27] MEDS: diphenhydrAMINE HCL 50 MG CAPSULE PO PRN (21:21)
[2017-02-27] MEDS: THIAMINE HCL 100 MG TABLET (FP) PO SCH (21:21)
[2017-02-28] MEDS: GABAPENTIN 400 MG CAPSULE (FP) PO SCH ×3 (06:26→21:12)
[2017-02-28] MEDS: FLUoxetine HCL 20 MG CAPSULE (FP) PO SCH (10:02)
[2017-02-28] MEDS: PRENATAL VITAMINS W/ FOLIC ACID TABLET (FP) PO SCH (10:02)
[2017-02-28] MEDS: NICOTINE 21 MG/24 HOURS TOPICAL PATCH TD SCH (10:02)
[2017-02-28] MEDS: IBUPROFEN 400 MG TABLET (FP) PO PRN (10:03)
[2017-02-28] MEDS: diphenhydrAMINE HCL 50 MG CAPSULE PO PRN (21:12)
[2017-02-28] MEDS: THIAMINE HCL 100 MG TABLET (FP) PO SCH (21:12)
[2017-03-01] MEDS: GABAPENTIN 400 MG CAPSULE (FP) PO SCH ×3 (06:08→21:21)
[2017-03-01] MEDS: FLUoxetine HCL 20 MG CAPSULE (FP) PO SCH (10:01)
[2017-03-01] MEDS: PRENATAL VITAMINS W/ FOLIC ACID TABLET (FP) PO SCH (10:01)
[2017-03-01] MEDS: NICOTINE 21 MG/24 HOURS TOPICAL PATCH TD SCH (10:01)
[2017-03-01] MEDS: IBUPROFEN 400 MG TABLET (FP) PO PRN (10:02)
[2017-03-01] MEDS: THIAMINE HCL 100 MG TABLET (FP) PO SCH (21:21)
[2017-03-01] MEDS: diphenhydrAMINE HCL 50 MG CAPSULE PO PRN (21:21)
[2017-03-02] MEDS: GABAPENTIN 400 MG CAPSULE (FP) PO SCH (06:04)
[2017-03-02 06:40] VITALS: BP 92/68; PULSE 67; TEMP 98.5
--- NOTE | 2017-03-02 09:16 | PN ---
Psychiatric Progress Note Vital Signs: Vital Signs Period Temp Pulse Resp BP Sys/Leal Pulse Ox Last 24 Hr 98.5 F 67 18-18 92/68 Date of Session: 03/02/17 Chief Complaint:: discharge visit HPI: Patient has addressed alcohol, nicotine dependence comorbid MDD. ROS: Arthritis, Hepatitis C Current Medications: Active Medications Generic Name Dose Route Start Last Admin Trade Name Freq PRN Reason Stop Dose Admin Acetaminophen 650 mg 02/16/17 13:21 02/19/17 10:11 Tylenol - PO 650 mg Q4H PRN Administration PAIN Al Hydroxide/Mg Hydroxide 30 ml 02/16/17 13:21 Mylanta Oral Suspension - PO Q6H PRN DYSPEPSIA Diphenhydramine HCl 50 mg 02/16/17 13:21 03/01/17 21:21 Benadryl - PO 50 mg HSMR1 PRN Administration INSOMNIA Eucalyptus/Menthol/Phenol/Sorbitol 1 each 02/16/17 13:21 Cepastat Lozenge - MM Q4H PRN SORE THROAT Fluoxetine HCl 40 mg 02/18/17 10:00 03/01/17 10:01 Prozac - PO 40 mg DAILY KAELA Administration Gabapentin 400 mg 02/17/17 14:00 03/02/17 06:04 Neurontin - PO 400 mg TID AKELA Administration Guaifenesin 10 ml 02/16/17 13:21 Robitussin Dm - PO Q6H PRN COUGH Hydroxyzine Pamoate 50 mg 02/16/17 13:21 Vistaril - PO Q4H PRN AGITATION Ibuprofen 800 mg 02/16/17 13:21 03/01/17 10:02 Motrin - PO 800 mg Q8H PRN Administration SEVERE PAIN Loperamide HCl 4 mg 02/16/17 13:21 Imodium - PO Q6H PRN DIARRHEA Magnesium Citrate 300 ml 02/16/17 13:21 Citroma - PO Q48H PRN CONSTIPATION Magnesium Hydroxide 30 ml 02/16/17 13:21 Milk Of Magnesia - PO DAILY PRN CONSTIPATION Nicotine 21 mg 02/17/17 10:00 03/01/17 10:01 Nicoderm Patch - TD Not Given DAILY KAELA Nicotine Polacrilex 4 mg 02/16/17 13:21 Nicorette Gum - BUC Q2H PRN NICOTINE REPLACEMENT RX Multivit/Folic Acid/Iron 1 tab 02/17/17 10:00 03/01/17 10:01 Vitamins (Sjr) - PO 1 tab DAILY KAELA Administration Pseudoephedrine/Triprolidine 1 combo 02/16/17 13:21 Actifed - PO TID PRN NASAL CONGESTION Thiamine HCl 100 mg 02/16/17 22:00 03/01/17 21:21 Vitamin B1 - PO 100 mg HS KAELA Administration Current Side Effect: No Lab tests ordered: No Lab tests reviewed: Yes Provider note:: Patient has completed his treatment today and met his goals, will continue to address his issues at [facility] treatment program. He gained insight into his problems, understands the negative consequenses of his addiction over major life areas and motivated to maintain abstinence and be adherent to every aspects of his aftercare plnas. Prozac well tolerated, patient reports he feels more energetic and hopefull, scripts provided, patient is stable for discharge today. Total face to face time:: 35 Mental Status Exam - Mental Status Exam Alert and Oriented to: Time, Place, Person Cognitive Function: Good Patient Appearance: Well Groomed Mood: Hopeful Affect: Appropriate, Mood Congruent Patient Behavior: Appropriate, Cooperative Speech Pattern: Clear, Appropriate Voice Loudness: Normal Thought Process: Intact, Goal Oriented Thought Disorder: Not Present Hallucinations: Denies Suicidal Ideation: Denies Homicidal Ideation: Denies Insight/Judgement: Fair Sleep: Fair Appetite: Fair Muscle strength/Tone: Normal Gait/Station: Normal Psychiatric Treatment Plan - Problem List (1) Cocaine dependence, uncomplicated Current Visit: Yes (2) Nicotine dependence Current Visit: Yes Qualifiers: Nicotine product type: cigarettes Substance use status: uncomplicated Qualified Code(s): F17.210 - Nicotine dependence, cigarettes, uncomplicated; F17.210 - Nicotine dependence, cigarettes, uncomplicated (3) MDD (major depressive disorder) Current Visit: Yes (4) Alcohol dependence Current Visit: Yes
[2017-03-02] MEDS: PRENATAL VITAMINS W/ FOLIC ACID TABLET (FP) PO SCH (10:00)
[2017-03-02] MEDS: FLUoxetine HCL 20 MG CAPSULE (FP) PO SCH (10:00)
[2017-03-02] MEDS: NICOTINE 21 MG/24 HOURS TOPICAL PATCH TD SCH (11:18)
== END 2017-03-02 10:50 | disposition home or self-care (01) | DRG 772 ==
LOC: YASAS 10:48 → Y5N 14:36
PROVIDERS: ADMIT Psychiatry & Neurology Psychiatry; ATTEND Psychiatry & Neurology Psychiatry
PROC: HZ42ZZZ Group Counseling for Substance Abuse Treatment, Cognitive-Behavioral (ICD-10-PCS; principal; 2017-02-16)
DX: F10.20 Alcohol dependence, uncomplicated (principal); F14.20 Cocaine dependence, uncomplicated; F17.210 Nicotine dependence, cigarettes, uncomplicated; F33.9 Major depressive disorder, recurrent, unspecified
CPT/HCPCS: 36415; 80053; 81003; 85027; 86593; 93005; 93010

== ENCOUNTER 2019-02-20 08:18 | Inpatient (IN) | payer OTHER ==
[2019-02-20 09:25] VITALS: BMI 26.0
--- NOTE | 2019-02-20 10:06 | HP ---
CIWA Score Nausea/Vomitin Muscle Tremors: 3 Anxiety: 3 Agitation: 2 Paroxysmal Sweats: 1-Minimal Palms Moist Orientation: 0-Oriented Tacttile Disturbances: 1-Very Mild Itch/Numbness Auditory Disturbances: 0-None Visual Disturbances: 0-None Headache: 2-Mild CIWA-Ar Total Score: 14 - Admission Criteria OASAS Guidelines: Admission for Medically Managed Detox: Requires at least one of the followin. CIWA greater than 12 2. Seizures within the past 24 hours 3. Delirium tremens within the past 24 hours 4. Hallucinations within the past 24 hours 5. Acute intervention needed for co occurring medical disorder 6. Acute intervention needed for co occurring psychiatric disorder 7. Severe withdrawal that cannot be handled at a lower level of care (continued vomiting, continued diarrhea, abnormal vital signs) requiring intravenous medication and/or fluids 8. 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 has anxiety and depression,no med plan for rehab after detox nicotine dependence smoke 8 cigarette/day history of arthritis and neuropathy,no compliance Exam Limitations: No Limitations - Ebola screening Have you traveled outside of the country in the last 21 days: No (N) Have you had contact with anyone from an Ebola affected area: No Do you have a fever: No - Review of Systems Constitutional: Loss of Appetite, Malaise, Night Sweats, Changes in sleep, Weakness EENT: reports: Nose Congestion Respiratory: reports: No Symptoms reported Cardiac: reports: No Symptoms Reported GI: reports: Nausea, Poor Appetite, Abdominal cramping : reports: No Symptoms Reported Musculoskeletal: reports: Back Pain, Muscle Pain Integumentary: reports: Dryness Neuro: reports: Headache, Tremors Endocrine: reports: No Symptoms Reported Hematology: reports: No Symptoms Reported Psychiatric: reports: No Sypmtoms Reported, Judgement Intact, Mood/Affect Appropiate, Orientated x3, Anxious, Depressed Other Systems: Reviewed and Negative Patient History - Patient Medical History Hx Anemia: No Hx Asthma: No Hx Chronic Obstructive Pulmonary Disease (COPD): No Hx Cancer: No Hx Cardiac Disorders: No Hx Congestive Heart Failure: No Hx Hypertension: No Hx Hypercholesterolemia: No Hx Pacemaker: No HX Cerebrovascular Accident: No Hx Seizures: No Hx Dementia: No Hx Diabetes: No Hx Gastrointestinal Disorders: Yes (no med) Hx Liver Disease: Yes (hep c) Hx Genitourinary Disorders: No Hx Sexually Transmitted Disorders: No Hx Renal Disease (ESRD): No Hx Thyroid Disease: No Hx Human Immunodeficiency Virus (HIV): No (06/12 last negative) Hx Hepatitis C: Yes (SCHEDULED TO TREAT) Hx Depression: Yes (anxiety) Hx Suicide Attempt: No Hx Bipolar Disorder: No Hx Schizophrenia: No Other Medical History: no suicidal,no homiidal - Patient Surgical History Past Surgical History: No Hx Neurologic Surgery: No Hx Cataract Extraction: No Hx Cardiac Surgery: No Hx Lung Surgery: No Hx Breast Surgery: No Hx Breast Biopsy: No Hx Abdominal Surgery: No Hx Appendectomy: No Hx Cholecystectomy: No Hx Genitourinary Surgery: No Hx Section: No Hx Orthopedic Surgery: No Anesthesia Reaction: No - PPD History Previous Implant?: Yes Documented Results: Negative w/o proof Implanted On Prior R Admission?: No PPD to be Administered?: No - Smoking Cessation Smoking history: Current every day smoker Have you smoked in the past 12 months: Yes Aproximately how many cigarettes per day: 8 Cigars Per Day: 0 Hx Chewing Tobacco Use: No Initiated information on smoking cessation: Yes 'Breaking Loose' booklet given: 02/20/19 - Substance & Tx. History Hx Alcohol Use: Yes Hx Substance Use: Yes Substance Use Type: Alcohol, Cocaine Hx Substance Use Treatment: Yes ([facility] 06/12 ) - Substances abused Alcohol Substance route: Oral Frequency: Daily Amount used: 1 to 2 of 6 packs of 12 ozs of beer/ 1 pint of henessy Age of first use: 13 Date of last use: 02/19/19 Cocaine Substance route: Smoking Frequency: 3-6 times per week Amount used: 100 dollars Age of first use: 13 Date of last use: 02/18/19 Admission Physical Exam BHS - Vital Signs Vital Signs: Vital Signs - 24 hr 02/20/19 09:12 Temperature 97.8 F Pulse Rate 73 Respiratory 17 Rate Blood Pressure 105/79 - Physical General Appearance: Yes: Moderate Distress, Tremorous, Irritable, Sweating, Anxious HEENTM: Yes: Normal ENT Inspection, [place], Pharynx Normal Respiratory: Yes: Lungs Clear, Normal Breath Sounds, No Respiratory Distress Neck: Yes: Within Normal Limits, Supple, Trachea in good position Breast: Yes: Within Normal Limits Cardiology: Yes: Within Normal Limits, Regular Rhythm, Regular Rate, S1, S2 Abdominal: Yes: Within Normal Limits, Normal Bowel Sounds, Non Tender, Flat, Soft Genitourinary: Yes: Within Normal Limits Back: Yes: Muscle Spasm Musculoskeletal: Yes: full range of Motion, Back pain, Joint Stiffness, Muscle Pain Extremities: Yes: Tremors Neurological: Yes: 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-XII NML intact, Alert, Motor Strength 5/5 Integumentary: Yes: Dry Lymphatic: Yes: Within Normal Limits - Diagnostic (1) Alcohol dependence with uncomplicated withdrawal Current Visit: No Status: Chronic (2) Cocaine dependence, uncomplicated Current Visit: No Status: Chronic (3) Nicotine dependence Current Visit: No Status: Chronic Qualifiers: Nicotine product type: cigarettes Substance use status: uncomplicated Qualified Code(s): F17.210 - Nicotine dependence, cigarettes, uncomplicated (4) Hepatitis C Current Visit: Yes Status: Acute (5) Arthritis Current Visit: Yes Status: Acute (6) Neuropathy Current Visit: Yes Status: Acute (7) Insomnia secondary to depression with anxiety Current Visit: Yes Status: Acute Cleared for Admission S - Detox or Rehab [facility] Level of Care: Medically Managed Detox Regimen/Protocol: Librium Breathalyzer - Breathalyzer Breathalyzer: 0 Urine Drug Screen - Test Device Lot number: [id number] Expiration date: 10/22/20 - Control Is test valid?: Yes - Results Drug screen NEGATIVE: Yes Urine drug screen results: THC-Marijuana Inpatient Rehab Admission - Rehab Decision to Admit Inpatient rehab admission?: No
[2019-02-20] MEDS ORDERED: BISMUTH SUBSALICYLATE 524 MG/30 ML UD PO PRN (10:22)
[2019-02-20] MEDS ORDERED: MAGNESIUM HYDROX 2400MG/30ML ORAL SUSPENSION 30 ML CUP PO PRN (10:22)
[2019-02-20] MEDS ORDERED: MAGNESIUM CITRATE 300 ML BOTTLE PO PRN (10:22)
[2019-02-20] MEDS ORDERED: chlordiazePOXIDE HCL 25 MG CAPSULE PO PRN (10:22)
[2019-02-20] MEDS ORDERED: ACETAMINOPHEN 325 MG TABLET (FP) PO PRN (10:22)
[2019-02-20] MEDS ORDERED: MENTHOL/PHENOL 1 EACH UD MM PRN (10:22)
[2019-02-20] MEDS ORDERED: hydrOXYzine PAMOATE 25 MG CAPSULE (FP) PO PRN (10:22)
[2019-02-20] MEDS ORDERED: IBUPROFEN 400 MG TABLET (FP) PO PRN (10:22)
[2019-02-20] MEDS ORDERED: MAG HYDROX/AL HYDROX/SIMETH 30 ML UNIT-DOSE CUP PO PRN (10:22)
[2019-02-20] MEDS: METHOCARBAMOL 500 MG TABLET PO PRN (11:47)
[2019-02-20] MEDS: chlordiazePOXIDE HCL 25 MG CAPSULE PO SCH ×2 (16:34→22:24)
[2019-02-20] MEDS: MELATONIN 5 MG TABLETS PO PRN (22:24)
[2019-02-20] MEDS: THIAMINE HCL 100 MG TABLET (FP) PO SCH (22:24)
[2019-02-21] MEDS: chlordiazePOXIDE HCL 25 MG CAPSULE PO SCH ×4 (06:21→22:09)
[2019-02-21] MEDS: PRENATAL VITAMINS W/ FOLIC ACID TABLET (FP) PO SCH (10:35)
[2019-02-21] MEDS: ACETAMINOPHEN 325 MG TABLET (FP) PO PRN (10:40)
--- NOTE | 2019-02-21 11:04 | PN ---
S CIWA - CIWA Score Nausea/Vomitin Muscle Tremors: 2 Anxiety: 2 Agitation: 2 Paroxysmal Sweats: No Perspiration Orientation: 0-Oriented Tacttile Disturbances: 1-Very Mild Itch/Numbness Auditory Disturbances: 0-None Visual Disturbances: 0-None Headache: 1-Very Mild CIWA-Ar Total Score: 10 BHS Progress Note (SOAP) Subjective: alert,irritable,anxious,interrupted sleep,tremor Objective: 02/21/19 10:54 Vital Signs Temperature 98.2 F 02/21/19 09:06 Pulse Rate 90 02/21/19 09:06 Respiratory Rate 18 02/21/19 09:06 Blood Pressure 100/63 02/21/19 09:06 O2 Sat by Pulse Oximetry (%) 02/21/19 11:05 labs pending Assessment: 02/21/19 11:05 withdrawal symptom Plan: continue detox librium regimen
[2019-02-21 11:37] LABS: URINE APPEARANCE CLEAR; URINE BILIRUBIN NEGATIVE (NEGATIVE); URINE COLOR YELLOW; URINE GLUCOSE (UA) NEGATIVE (NEGATIVE); URINE KETONE NEGATIVE (NEGATIVE); URINE LEUK ESTERASE NEGATIVE (NEGATIVE); URINE NITRITE NEGATIVE (NEGATIVE); URINE PROTEIN NEGATIVE (NEGATIVE)
[2019-02-21 11:51] LABS: HEMATOCRIT 38.8 % (35.4-49); MCH 31.4 pg (25.7-33.7); MCHC 33.4 g/dl (32.0-35.9); MEAN CELL VOLUME 93.9 fl (80-96); MEAN PLT VOLUME 8.6 fl (7.5-11.1); PLATELET COUNT 305 K/MM3 (134-434); RBC 4.13 M/mm3 (4.00-5.60); RDW 15.3 % (11.9-15.9); WHITE BLOOD COUNT 4.3 K/mm3 (4.0-10.0)
[2019-02-21 12:13] LABS: ALBUMIN 3.1 g/dl (3.4-5.0); BILIRUBIN,TOTAL 0.4 mg/dL (0.2-1); CALCIUM 8.6 mg/dL (8.5-10.1); CREATININE 0.9 mg/dL (0.55-1.3); POTASSIUM 4.5 mmol/L (3.5-5.1); TOT PROT 6.3 g/dl (6.4-8.2)
[2019-02-21] MEDS: METHOCARBAMOL 500 MG TABLET PO PRN (22:09)
[2019-02-21] MEDS: THIAMINE HCL 100 MG TABLET (FP) PO SCH (22:09)
[2019-02-22] MEDS: chlordiazePOXIDE HCL 25 MG CAPSULE PO SCH ×2 (06:00→10:26)
[2019-02-22] MEDS: ACETAMINOPHEN 325 MG TABLET (FP) PO PRN (06:03)
[2019-02-22] MEDS: PRENATAL VITAMINS W/ FOLIC ACID TABLET (FP) PO SCH (10:26)
[2019-02-22] MEDS: METHOCARBAMOL 500 MG TABLET PO PRN (10:27)
--- NOTE | 2019-02-22 11:41 | PN ---
S CIWA - CIWA Score Nausea/Vomitin-Mild Nausea/No Vomiting Muscle Tremors: 1-None Visible, but Wrights Anxiety: 2 Agitation: 2 Paroxysmal Sweats: No Perspiration Orientation: 0-Oriented Tacttile Disturbances: 1-Very Mild Itch/Numbness Auditory Disturbances: 0-None Visual Disturbances: 0-None Headache: 1-Very Mild CIWA-Ar Total Score: 8 BHS Progress Note (SOAP) Subjective: alert,irritable,anxious,interrupted sleep,pain in the body Objective: 02/22/19 11:39 Vital Signs Temperature 98.4 F 02/22/19 09:39 Pulse Rate 76 02/22/19 09:39 Respiratory Rate 16 02/22/19 09:39 Blood Pressure 94/72 02/22/19 09:39 O2 Sat by Pulse Oximetry (%) Laboratory Last Values WBC 4.3 K/mm3 (4.0-10.0) 02/21/19 08:50 RBC 4.13 M/mm3 (4.00-5.60) 02/21/19 08:50 Hgb 13.0 GM/dL (11.7-16.9) 02/21/19 08:50 Hct 38.8 % (35.4-49) 02/21/19 08:50 MCV 93.9 fl (80-96) 02/21/19 08:50 MCH 31.4 pg (25.7-33.7) 02/21/19 08:50 MCHC 33.4 g/dl (32.0-35.9) 02/21/19 08:50 RDW 15.3 % (11.9-15.9) 02/21/19 08:50 Plt Count 305 K/MM3 (134-434) 02/21/19 08:50 MPV 8.6 fl (7.5-11.1) 02/21/19 08:50 Sodium 141 mmol/L (136-145) 02/21/19 08:50 Potassium 4.5 mmol/L (3.5-5.1) 02/21/19 08:50 Chloride 107 mmol/L (98-107) 02/21/19 08:50 Carbon Dioxide 29 mmol/L (21-32) 02/21/19 08:50 Anion Gap 5 MMOL/L (8-16) L 02/21/19 08:50 BUN 12.0 mg/dL (7-18) 02/21/19 08:50 Creatinine 0.9 mg/dL (0.55-1.3) 02/21/19 08:50 Est GFR (CKD-EPI)AfAm 107.97 02/21/19 08:50 Est GFR (CKD-EPI)NonAf 93.16 02/21/19 08:50 Random Glucose 106 mg/dL (74-106) 02/21/19 08:50 Calcium 8.6 mg/dL (8.5-10.1) 02/21/19 08:50 Total Bilirubin 0.4 mg/dL (0.2-1) 02/21/19 08:50 AST 88 U/L (15-37) H 02/21/19 08:50 ALT 135 U/L (13-61) H 02/21/19 08:50 Alkaline Phosphatase 76 U/L (45-117) 02/21/19 08:50 Total Protein 6.3 g/dl (6.4-8.2) L 02/21/19 08:50 Albumin 3.1 g/dl (3.4-5.0) L 02/21/19 08:50 Urine Color Yellow 02/21/19 08:45 Urine Appearance Clear 02/21/19 08:45 Urine pH 6.0 (5.0-8.0) 02/21/19 08:45 Ur Specific [place] 1.011 (1.010-1.035) 02/21/19 08:45 Urine Protein Negative (NEGATIVE) 02/21/19 08:45 Urine Glucose (UA) Negative (NEGATIVE) 02/21/19 08:45 Urine Ketones Negative (NEGATIVE) 02/21/19 08:45 Urine Blood Negative (NEGATIVE) 02/21/19 08:45 Urine Nitrite Negative (NEGATIVE) 02/21/19 08:45 Urine Bilirubin Negative (NEGATIVE) 02/21/19 08:45 Urine Urobilinogen 1.0 mg/dL (0.2-1.0) 02/21/19 08:45 Ur Leukocyte Esterase Negative (NEGATIVE) 02/21/19 08:45 RPR Titer Nonreactive (NONREACTIVE) 02/21/19 08:50 Assessment: 02/22/19 11:40 withdrawal symptom Plan: regimen changed to ativan due to elavated ast,alt and hepatitis c
[2019-02-22] MEDS ORDERED: LORazepam 1 MG TABLET PO PRN (11:46)
[2019-02-22] MEDS: LORazepam 2 MG TABLET PO SCH ×2 (17:09→22:16)
[2019-02-22] MEDS ORDERED: GABAPENTIN 400 MG CAPSULE (FP) ONE (19:34)
[2019-02-22] MEDS: THIAMINE HCL 100 MG TABLET (FP) PO SCH (22:16)
[2019-02-22] MEDS: GABAPENTIN 400 MG CAPSULE (FP) PO SCH ×2 (22:16→23:03)
[2019-02-22] MEDS: MELATONIN 5 MG TABLETS PO PRN (22:16)
[2019-02-23] MEDS ORDERED: chlordiazePOXIDE HCL 10 MG CAPSULE PO PRN
[2019-02-23] MEDS ORDERED: chlordiazePOXIDE HCL 10 MG CAPSULE PO SCH (05:00)
[2019-02-23] MEDS: LORazepam 2 MG TABLET PO SCH ×4 (06:40→22:08)
[2019-02-23] MEDS: GABAPENTIN 400 MG CAPSULE (FP) PO SCH ×2 (07:22→15:18)
--- NOTE | 2019-02-23 09:24 | CONSULT ---
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 Refer to addiction counselor's summary for further information Medical History: Significant for hepatitis C, arthritis and neuropathy. Smkoes 8 cigarettes daily Psychiatric History: Reports that his first psychiatric contact was in 2012 while at [facility]. He was referred to the staff psychiatrist and after evaluation, he was prescribed Prozac for depression and anxiety. Told news writer that he stopped taking it after 2 weeks due to experiencing sexual side- effects. Then later on, while at [facility] for residential treatment , he was again started on Prozac 40 mg/day. He said that after completing that program, he went to [facility] for outpatient treatment. While there, he was continued on Prozac which he stopped taking it sometime last year and he has been off it since. Denies previous psychiatric hospitalization or suicidal attempt. At present, reports feeling depressed and sleping poorly. Told news writer that he was given a medication that help him sleep last night Physical/Sexual Abuse/Trauma History: Denies history of sexual, physical and verbal abuse. Mental Status Exam - Mental Status Exam Alert and Oriented to: Time, Place, Person Cognitive Function: Fair Patient Appearance: Disheveled Mood: Depressed Affect: Appropriate Patient Behavior: Cooperative Speech Pattern: Clear Voice Loudness: Normal Thought Process: Intact, Goal Oriented Hallucinations: Denies Suicidal Ideation: Denies Homicidal Ideation: Denies Insight/Judgement: Poor Sleep: Poorly Appetite: Good Muscle strength/Tone: Rigidity Gait/Station: Normal Psychiatric Findings - Problem List ([facility] 1, 2,3) (1) Depressive disorder Current Visit: Yes Status: Chronic (2) MDD (major depressive disorder) Current Visit: No Status: Ruled-out (3) Substance induced mood disorder Current Visit: No Status: Acute (4) Substance-induced sleep disorder Current Visit: Yes Status: Acute (5) Alcohol dependence with uncomplicated withdrawal Current Visit: No Status: Acute (6) Cocaine dependence, uncomplicated Current Visit: No Status: Acute (7) Nicotine dependence Current Visit: No Status: Chronic Qualifiers: Nicotine product type: cigarettes Substance use status: uncomplicated Qualified Code(s): F17.210 - Nicotine dependence, cigarettes, uncomplicated (8) Arthritis Current Visit: Yes Status: Acute (9) Hepatitis C Current Visit: Yes Status: Acute (10) Neuropathy Current Visit: Yes Status: Acute - Initial Treatment Plan Initial Treatment Plan: 1) Continue Melatonin 5 mg po HS prn for insomnia. 2) Continue inpatient detoxification
[2019-02-23] MEDS: PRENATAL VITAMINS W/ FOLIC ACID TABLET (FP) PO SCH (10:43)
[2019-02-23 11:01] LABS: SGOT/AST 100 U/L (15-37); SGPT/ALT 158 U/L (13-61)
[2019-02-23 11:10] LABS: INR 1.04 (0.83-1.09); PROTHROMBIN TIME (PATIENT) 12.3 SEC (9.7-13.0)
--- NOTE | 2019-02-23 11:39 | PN ---
S CIWA - CIWA Score Nausea/Vomitin-Mild Nausea/No Vomiting Muscle Tremors: 1-None Visible, but Challenge Anxiety: 2 Agitation: 2 Paroxysmal Sweats: 1-Minimal Palms Moist Orientation: 0-Oriented Tacttile Disturbances: 0-None Auditory Disturbances: 0-None Visual Disturbances: 0-None Headache: 1-Very Mild CIWA-Ar Total Score: 8 BHS Progress Note (SOAP) Subjective: alert,irritable,anxious,interrupted sleep Objective: 02/23/19 11:37 Vital Signs Temperature 97.9 F 02/23/19 09:17 Pulse Rate 72 02/23/19 09:17 Respiratory Rate 18 02/23/19 09:17 Blood Pressure 102/60 02/23/19 09:17 O2 Sat by Pulse Oximetry (%) 02/23/19 11:38 Laboratory Results - last 24 hr 02/23/19 02/23/19 08:00 08:00 PT with INR 12.30 INR 1.04 AST 100 H ALT 158 H Assessment: 02/23/19 11:38 withdrawal symptom Plan: continue detox ativan regimen
[2019-02-23] MEDS: METHOCARBAMOL 500 MG TABLET PO PRN (22:08)
[2019-02-23] MEDS: THIAMINE HCL 100 MG TABLET (FP) PO SCH (22:08)
[2019-02-24] MEDS ORDERED: chlordiazePOXIDE HCL 10 MG CAPSULE PO SCH (05:00)
[2019-02-24] MEDS: LORazepam 1 MG TABLET PO SCH ×4 (07:25→22:18)
[2019-02-24] MEDS: GABAPENTIN 400 MG CAPSULE (FP) PO SCH ×3 (08:00→22:19)
[2019-02-24] MEDS: PRENATAL VITAMINS W/ FOLIC ACID TABLET (FP) PO SCH (10:38)
[2019-02-24] MEDS: ACETAMINOPHEN 325 MG TABLET (FP) PO PRN (10:39)
--- NOTE | 2019-02-24 13:38 | PN ---
S CIWA - CIWA Score Nausea/Vomitin-No Nausea/No Vomiting Muscle Tremors: 2 Anxiety: 3 Agitation: 2 Paroxysmal Sweats: 1-Minimal Palms Moist Orientation: 0-Oriented Tacttile Disturbances: 1-Very Mild Itch/Numbness Auditory Disturbances: 0-None Visual Disturbances: 0-None Headache: 2-Mild CIWA-Ar Total Score: 11 S Progress Note (SOAP) Subjective: c/o of interrupted sleep , shakes, chills, sweats Objective: 02/24/19 13:36 Vital Signs Temperature 97.9 F 02/24/19 09:36 Pulse Rate 80 02/24/19 09:36 Respiratory Rate 18 02/24/19 09:36 Blood Pressure 100/60 02/24/19 09:36 O2 Sat by Pulse Oximetry (%) Laboratory Last Values WBC 4.3 K/mm3 (4.0-10.0) 02/21/19 08:50 RBC 4.13 M/mm3 (4.00-5.60) 02/21/19 08:50 Hgb 13.0 GM/dL (11.7-16.9) 02/21/19 08:50 Hct 38.8 % (35.4-49) 02/21/19 08:50 MCV 93.9 fl (80-96) 02/21/19 08:50 MCH 31.4 pg (25.7-33.7) 02/21/19 08:50 MCHC 33.4 g/dl (32.0-35.9) 02/21/19 08:50 RDW 15.3 % (11.9-15.9) 02/21/19 08:50 Plt Count 305 K/MM3 (134-434) 02/21/19 08:50 MPV 8.6 fl (7.5-11.1) 02/21/19 08:50 PT with INR 12.30 SEC (9.7-13.0) 02/23/19 08:00 INR 1.04 (0.83-1.09) 02/23/19 08:00 Sodium 141 mmol/L (136-145) 02/21/19 08:50 Potassium 4.5 mmol/L (3.5-5.1) 02/21/19 08:50 Chloride 107 mmol/L (98-107) 02/21/19 08:50 Carbon Dioxide 29 mmol/L (21-32) 02/21/19 08:50 Anion Gap 5 MMOL/L (8-16) L 02/21/19 08:50 BUN 12.0 mg/dL (7-18) 02/21/19 08:50 Creatinine 0.9 mg/dL (0.55-1.3) 02/21/19 08:50 Est GFR (CKD-EPI)AfAm 107.97 02/21/19 08:50 Est GFR (CKD-EPI)NonAf 93.16 02/21/19 08:50 Random Glucose 106 mg/dL (74-106) 02/21/19 08:50 Calcium 8.6 mg/dL (8.5-10.1) 02/21/19 08:50 Total Bilirubin 0.4 mg/dL (0.2-1) 02/21/19 08:50 AST 100 U/L (15-37) H 02/23/19 08:00 ALT 158 U/L (13-61) H 02/23/19 08:00 Alkaline Phosphatase 76 U/L (45-117) 02/21/19 08:50 Total Protein 6.3 g/dl (6.4-8.2) L 02/21/19 08:50 Albumin 3.1 g/dl (3.4-5.0) L 02/21/19 08:50 Urine Color Yellow 02/21/19 08:45 Urine Appearance Clear 02/21/19 08:45 Urine pH 6.0 (5.0-8.0) 02/21/19 08:45 Ur Specific [place] 1.011 (1.010-1.035) 02/21/19 08:45 Urine Protein Negative (NEGATIVE) 02/21/19 08:45 Urine Glucose (UA) Negative (NEGATIVE) 02/21/19 08:45 Urine Ketones Negative (NEGATIVE) 02/21/19 08:45 Urine Blood Negative (NEGATIVE) 02/21/19 08:45 Urine Nitrite Negative (NEGATIVE) 02/21/19 08:45 Urine Bilirubin Negative (NEGATIVE) 02/21/19 08:45 Urine Urobilinogen 1.0 mg/dL (0.2-1.0) 02/21/19 08:45 Ur Leukocyte Esterase Negative (NEGATIVE) 02/21/19 08:45 RPR Titer Nonreactive (NONREACTIVE) 02/21/19 08:50 repeat ALT/ AST d/c acetaminophen Assessment: 02/24/19 13:37 Aox3 no acute distress no JVD no gait abnormality, ambulating the unit Plan: increase po fluids continue detox continue to monitor
[2019-02-24] MEDS: METHOCARBAMOL 500 MG TABLET PO PRN (18:03)
[2019-02-24] MEDS: THIAMINE HCL 100 MG TABLET (FP) PO SCH (22:18)
[2019-02-25] MEDS ORDERED: LORazepam 0.5 MG TABLET PO PRN
[2019-02-25] MEDS ORDERED: chlordiazePOXIDE HCL 10 MG CAPSULE PO ONE (05:00)
[2019-02-25] MEDS: LORazepam 0.5 MG TABLET PO SCH ×2 (06:54→10:30)
[2019-02-25] MEDS: GABAPENTIN 400 MG CAPSULE (FP) PO SCH (06:54)
[2019-02-25 10:15] VITALS: BP 108/62; PULSE 92; TEMP 98.4
[2019-02-25] MEDS: PRENATAL VITAMINS W/ FOLIC ACID TABLET (FP) PO SCH (10:30)
[2019-02-25 15:11] LABS: SGOT/AST 111 U/L (15-37); SGPT/ALT 194 U/L (13-61)
[2019-02-26] MEDS ORDERED: LORazepam 0.5 MG TABLET PO ONE (05:00)
== END 2019-02-25 12:00 | disposition home or self-care (01) | DRG 774 ==
LOC: YASAS 08:18 → Y6N 11:00
PROVIDERS: ADMIT Surgery; ATTEND Surgery
PROC: HZ2ZZZZ Detoxification Services for Substance Abuse Treatment (ICD-10-PCS; principal; 2019-02-20)
DX: F10.230 Alcohol dependence with withdrawal, uncomplicated (principal); F14.20 Cocaine dependence, uncomplicated; F17.210 Nicotine dependence, cigarettes, uncomplicated; F19.282 Other psychoactive substance dependence with psychoactive substance-induced sleep disorder; F19.24 Other psychoactive substance dependence with psychoactive substance-induced mood disorder; F32.9 Major depressive disorder, single episode, unspecified; F41.8 Other specified anxiety disorders; G62.9 Polyneuropathy, unspecified; B18.2 Chronic viral hepatitis C; M12.9 Arthropathy, unspecified
CPT/HCPCS: 36415; 80053; 81003; 84450; 84460; 85027; 85610; 86593

== ENCOUNTER 2019-02-26 12:41 | Inpatient (IN) | payer OTHER ==
[2019-02-26 13:30] VITALS: BMI 26.9
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
[2019-02-26] MEDS ORDERED: P-EPHED 60MG/TRIPROLIDI 2.5MG TABLET PO PRN (14:20)
[2019-02-26] MEDS ORDERED: LOPERAMIDE HCL 2 MG CAPSULE PO PRN (14:20)
[2019-02-26] MEDS ORDERED: MAGNESIUM HYDROX 2400MG/30ML ORAL SUSPENSION 30 ML CUP PO PRN (14:20)
[2019-02-26] MEDS ORDERED: MENTHOL/PHENOL 1 EACH UD MM PRN (14:20)
[2019-02-26] MEDS ORDERED: NICOTINE POLACRILEX 2 MG GUM BUC PRN (14:20)
[2019-02-26] MEDS ORDERED: MAGNESIUM CITRATE 300 ML BOTTLE PO PRN (14:20)
[2019-02-26] MEDS ORDERED: hydrOXYzine PAMOATE 25 MG CAPSULE (FP) PO PRN (14:20)
[2019-02-26] MEDS ORDERED: MAG HYDROX/AL HYDROX/SIMETH 30 ML UNIT-DOSE CUP PO PRN (14:20)
[2019-02-26] MEDS ORDERED: IBUPROFEN 400 MG TABLET (FP) PO PRN (14:20)
[2019-02-26] MEDS ORDERED: guaiFENesin 200 MG/10 ML 10 ML UNIT-DOSE CUPS PO PRN (14:20)
[2019-02-26] MEDS: GABAPENTIN 400 MG CAPSULE (FP) PO SCH ×2 (15:26→22:01)
[2019-02-26] MEDS: ACETAMINOPHEN 325 MG TABLET (FP) PO PRN ×2 (15:27→22:02)
[2019-02-26] MEDS: THIAMINE HCL 100 MG TABLET (FP) PO SCH (22:01)
[2019-02-26] MEDS: MELATONIN 5 MG TABLETS PO PRN (22:01)
[2019-02-27] MEDS: GABAPENTIN 400 MG CAPSULE (FP) PO SCH ×3 (06:33→21:55)
[2019-02-27] MEDS: ACETAMINOPHEN 325 MG TABLET (FP) PO PRN ×2 (06:34→10:58)
[2019-02-27] MEDS: PRENATAL VITAMINS W/ FOLIC ACID TABLET (FP) PO SCH (10:57)
[2019-02-27] MEDS: THIAMINE HCL 100 MG TABLET (FP) PO SCH (21:55)
[2019-02-27] MEDS: MELATONIN 5 MG TABLETS PO PRN (21:55)
[2019-02-28] MEDS: GABAPENTIN 400 MG CAPSULE (FP) PO SCH ×2 (06:19→14:49)
[2019-02-28 07:06] VITALS: BP 92/66; PULSE 68; TEMP 98.1
[2019-02-28] MEDS: PRENATAL VITAMINS W/ FOLIC ACID TABLET (FP) PO SCH (11:02)
--- NOTE | 2019-02-28 15:24 | DS ---
[facility] Rehab Discharge Summary - [facility] Rehab Discharge Summary Admission Date: 02/26/19 Discharge Date: 02/28/19 - History Present History: Alcohol dependence, Cannabis dependence, Cocaine dependence Additional Comments: Pt is a 58 y/o male admitted to rehab on 02/26/19 for alcohol,cocaine and marijuana use disorder. Pt completed detox on [address] on 02/25/19 and was referred to [facility] for CD aftercare but states he went and left because received upsetting news from home but ended up drinking alcohol, smoking marijuana and cocaine before returning to [facility] the next day. Today , pt also has same narrative stating he has family matter he has to take care of stating "I am the oldest male in the family and has to take care of somethings. No one puts hands on a female". All efforts to encourage pt to give treatment a chance and focus on his treatment was turned down by this patient and stated "I'm coming back". Pt denies any suicidal or homicidal ideations when asked. Pt was seen by counselor, Ms Steven Lira before leaving and has been referred to Gisele, brittany and Able. Pertinent Past History: Arthritis Hep C - Discharge Physical Exam Vital Signs: Vital Signs Temperature 98.1 F 02/28/19 07:05 Pulse Rate 68 02/28/19 07:05 Respiratory Rate 20 02/28/19 07:05 Blood Pressure 92/66 02/28/19 07:05 O2 Sat by Pulse Oximetry (%) Alert o x 3 nad ambulating with steady gait Pertinent Admission Physical Exam Findings: Unremarkable - Treatment Discharge Condition: Discharge condition good Hospital Course: Pt declined to stay in treatment and leaving treatment. - Medication Discharge Medications: Ambulatory Orders Gabapentin 400 mg PO TID 7 Days #21 capsule 02/28/19 - Medication-Assisted Treatment (MAT) Medication-Assisted Treatment (MAT): No - Discharge Instructions Diet, activity, other medical instructions: Diet:Regular Activity: oob ad michelet Other medical instructions:Follow up with [facility] Willing and [facility] as recommended. Follow up with your primary Care provider at [place], [place] within 1 week after discharge. - Diagnosis (1) Alcohol dependence Status: Chronic Qualifiers: Substance use status: uncomplicated Qualified Code(s): F10.20 - Alcohol dependence, uncomplicated (2) Arthritis Status: Chronic (3) Hepatitis C Status: Chronic Qualifiers: Viral hepatitis chronicity: chronic Hepatic coma status: without hepatic coma Qualified Code(s): B18.2 - Chronic viral hepatitis C (4) Neuropathy Status: Chronic (5) Nicotine dependence Status: Chronic Qualifiers: Nicotine product type: cigarettes Substance use status: uncomplicated Qualified Code(s): F17.210 - Nicotine dependence, cigarettes, uncomplicated - Follow-up Referral Minutes to complete discharge: 20 - AMA Did Patient Leave Against Medical Advice: Yes Additional Comments: [facility] Rx for Gabapentin 400 mg po tid x 7 days sent electronically to pt's home [facility]) for [facility].
== END 2019-02-28 16:00 | disposition left against medical advice (07) | DRG 770 ==
LOC: YASAS 12:41 → Y5N 14:18
PROVIDERS: ADMIT Neuromusculoskeletal Medicine & OMM; ATTEND Neuromusculoskeletal Medicine & OMM
PROC: HZ43ZZZ Group Counseling for Substance Abuse Treatment, 12-Step (ICD-10-PCS; principal; 2019-02-26)
DX: F10.20 Alcohol dependence, uncomplicated (principal); F14.20 Cocaine dependence, uncomplicated; F17.210 Nicotine dependence, cigarettes, uncomplicated; G62.9 Polyneuropathy, unspecified; B18.2 Chronic viral hepatitis C; M19.90 Unspecified osteoarthritis, unspecified site; R76.11 Nonspecific reaction to tuberculin skin test without active tuberculosis

== ENCOUNTER 2020-09-05 20:50 | Inpatient (IN) | payer OTHER ==
[2020-09-05 23:15] VITALS: BMI 29.1
[2020-09-06] MEDS ORDERED: ONDANSETRON *ODT* 4 MG TABLET SL PRN (00:16)
[2020-09-06] MEDS ORDERED: MAG HYDROX/AL HYDROX/SIMETH 30 ML UNIT-DOSE CUP PO PRN (00:16)
[2020-09-06] MEDS ORDERED: P-EPHED 60MG/TRIPROLIDI 2.5MG TABLET PO PRN (00:16)
[2020-09-06] MEDS ORDERED: MAGNESIUM CITRATE 300 ML BOTTLE PO PRN (00:16)
[2020-09-06] MEDS ORDERED: BISMUTH SUBSALICYLATE 524 MG/30 ML UD PO PRN (00:16)
[2020-09-06] MEDS ORDERED: DICYCLOMINE HCL 10 MG CAPSULE PO PRN (00:16)
[2020-09-06] MEDS ORDERED: ACETAMINOPHEN 325 MG TABLET (FP) PO PRN ×2 (00:16)
[2020-09-06] MEDS ORDERED: METHOCARBAMOL 500 MG TABLET PO PRN (00:16)
[2020-09-06] MEDS ORDERED: hydrOXYzine PAMOATE 25 MG CAPSULE (FP) PO PRN (00:16)
[2020-09-06] MEDS ORDERED: LORazepam 1 MG TABLET PO PRN (00:16)
[2020-09-06] MEDS ORDERED: MAGNESIUM HYDROX 2400MG/30ML ORAL SUSPENSION 30 ML CUP PO PRN (00:16)
[2020-09-06] MEDS ORDERED: NICOTINE POLACRILEX 2 MG GUM BUC PRN (00:16)
[2020-09-06] MEDS ORDERED: guaiFENesin 200 MG/10 ML 10 ML UNIT-DOSE CUPS PO PRN (00:16)
[2020-09-06] MEDS ORDERED: MENTHOL/PHENOL 1 EACH UD MM PRN (00:16)
[2020-09-06] MEDS: LORazepam 2 MG TABLET PO SCH ×4 (05:37→23:32)
[2020-09-06] MEDS ORDERED: MASKS NR ONE (06:58)
[2020-09-06] MEDS: PRENATAL VITAMINS W/ FOLIC ACID TABLET (FP) PO SCH (10:11)
[2020-09-06] MEDS: NICOTINE 14 MG/24 HOURS TOPICAL PATCH TD SCH (10:13)
[2020-09-06] MEDS: IBUPROFEN 400 MG TABLET (FP) PO PRN (18:40)
[2020-09-06] MEDS: MELATONIN 5 MG TABLETS PO SCH (23:32)
[2020-09-06] MEDS: THIAMINE HCL 100 MG TABLET (FP) PO SCH (23:33)
[2020-09-07] MEDS: LORazepam 1 MG TABLET PO SCH ×4 (06:36→23:02)
[2020-09-07] MEDS: PRENATAL VITAMINS W/ FOLIC ACID TABLET (FP) PO SCH (10:21)
[2020-09-07] MEDS: NICOTINE 14 MG/24 HOURS TOPICAL PATCH TD SCH (10:21)
[2020-09-07 12:14] LABS: HEMATOCRIT 40.3 % (35.4-49); HEMOGLOBIN 13.6 GM/dL (11.7-16.9); MCH 32.1 pg (25.7-33.7); MCHC 33.7 g/dl (32.0-35.9); MEAN PLT VOLUME 9.2 fl (7.5-11.1); PLATELET COUNT 293 K/MM3 (134-434); RBC 4.25 M/mm3 (4.00-5.60); RDW 16.2 % (11.9-15.9); WHITE BLOOD COUNT 7.2 K/mm3 (4.0-10.0)
[2020-09-07 12:26] LABS: CALCIUM 9.3 mg/dL (8.5-10.1)
[2020-09-07 12:32] LABS: BLOOD UREA NITROGEN 17.3 mg/dL (7-18)
[2020-09-07 12:34] LABS: ALBUMIN 3.4 g/dl (3.4-5.0)
[2020-09-07 12:35] LABS: BILIRUBIN,TOTAL 0.5 mg/dL (0.2-1); TOT PROT 6.9 g/dl (6.4-8.2)
[2020-09-07 12:37] LABS: CREATININE 0.9 mg/dL (0.55-1.3)
[2020-09-07] MEDS: IBUPROFEN 400 MG TABLET (FP) PO PRN (17:46)
[2020-09-07] MEDS: MELATONIN 5 MG TABLETS PO SCH (23:03)
[2020-09-07] MEDS: THIAMINE HCL 100 MG TABLET (FP) PO SCH (23:03)
[2020-09-08] MEDS ORDERED: LORazepam 0.5 MG TABLET PO PRN
[2020-09-08] MEDS: LORazepam 0.5 MG TABLET PO SCH ×4 (06:04→22:49)
[2020-09-08] MEDS: NICOTINE 14 MG/24 HOURS TOPICAL PATCH TD SCH (10:35)
[2020-09-08] MEDS: PRENATAL VITAMINS W/ FOLIC ACID TABLET (FP) PO SCH (10:35)
[2020-09-08] MEDS: IBUPROFEN 400 MG TABLET (FP) PO PRN (17:43)
[2020-09-08] MEDS: MELATONIN 5 MG TABLETS PO SCH (22:49)
[2020-09-08] MEDS: THIAMINE HCL 100 MG TABLET (FP) PO SCH (22:49)
[2020-09-09] MEDS ORDERED: LORazepam 0.5 MG TABLET PO ONE (05:00)
[2020-09-09 09:52] VITALS: BP 101/70; PULSE 61; TEMP 97.4
[2020-09-09] MEDS: IBUPROFEN 400 MG TABLET (FP) PO PRN (10:29)
[2020-09-09] MEDS: NICOTINE 14 MG/24 HOURS TOPICAL PATCH TD SCH (10:29)
[2020-09-09] MEDS: PRENATAL VITAMINS W/ FOLIC ACID TABLET (FP) PO SCH (10:29)
== END 2020-09-09 11:20 | disposition home or self-care (01) | DRG 774 ==
LOC: YASAS 20:50 → Y3N 09-06 01:31
PROVIDERS: ADMIT Allergy & Immunology; ATTEND Allergy & Immunology
PROC: HZ2ZZZZ Detoxification Services for Substance Abuse Treatment (ICD-10-PCS; principal; 2020-09-06)
DX: F10.230 Alcohol dependence with withdrawal, uncomplicated (principal); F14.20 Cocaine dependence, uncomplicated; F17.210 Nicotine dependence, cigarettes, uncomplicated; F19.282 Other psychoactive substance dependence with psychoactive substance-induced sleep disorder; F19.24 Other psychoactive substance dependence with psychoactive substance-induced mood disorder; H40.9 Unspecified glaucoma; G62.9 Polyneuropathy, unspecified; B18.2 Chronic viral hepatitis C; M19.90 Unspecified osteoarthritis, unspecified site; M54.5 Low back pain; G89.29 Other chronic pain; R76.11 Nonspecific reaction to tuberculin skin test without active tuberculosis; Z87.81 Personal history of (healed) traumatic fracture; Z56.0 Unemployment, unspecified; Z59.0 Homelessness
CPT/HCPCS: 36415; 80053; 85027; 86780; 93005; 93010; C9803; U0003; U0005